=== PATIENT | male | born 1930 | race Caucasian/White ===

== ENCOUNTER 2017-01-16 18:48 | Inpatient (IN) ==
--- NOTE | 2017-01-16 21:14 | Internal Med History&Physical ---
Date of Encounter: 01/16/17 Time of Encounter: 21:14 Assessment and Plan (1) Pericardial effusion Current visit: Yes Status: Acute Patient transferred to our unit due to pericardial effusion. Etiology under evaluation. No signs of pericardial tamponade, no hypotension, no tachycardia. We will obtain an echocardiogram for further clarification of the amount of the effusion. Obtain CRP, ESR, rheumatoid factor, repeat thyroid function tests, hepatitis panel, viral infection panel, HIV. We will obtain a tent of cardiac biomarkers. monitoring and evaluation advisor. Monitor input and output. Cardiology evaluation. (2) DVT prophylaxis Current visit: No Status: Acute DVT prophylaxis with heparin. (3) Chronic kidney disease Current visit: Yes Status: Acute Avoid nephrotoxic agents. Monitor kidney function tests. Qualifiers: Chronic kidney disease stage: stage 3 (moderate) Qualified Code(s): N18.3 - Chronic kidney disease, stage 3 (moderate) (4) Hyperlipidemia Current visit: No Status: Chronic Qualifiers: Hyperlipidemia type: mixed hyperlipidemia Qualified Code(s): E78.2 - Mixed hyperlipidemia (5) Hypertension Current visit: No Status: Chronic Patient complaining of cough which is persistent for almost a month, we will hold NURYS inhibitor. Qualifiers: Hypertension type: essential hypertension Qualified Code(s): I10 - Essential (primary) hypertension Internal Medicine - H&P: HPI Chief complaint: Cough Admitted From: Hospital to Hospital Transfer ([facility]) Plans for Post Hospital Care: Home History of present illness: Mr. Small is a 86 year old male with medical history of hypertension, coronary artery disease status post stents a few years ago, from her smoker. He presented to [facility] as a direct transfer from [facility]. The patient states that since the last 4 weeks. In complaining of persistent productive cough, clear phlegm, associated with shortness of breath and mild chest pain which is exacerbated by cough. He has been given multiple courses of antibiotics and steroids without improvement. Upon evaluation at [facility] he was found to have a moderate pericardial effusion. He was not hypotensive or tachycardic. Emergency department staff at [facility] discussed the case with our green end man who accepted to evaluate the patient tomorrow with an echo and thallium for further clarification of the severity of the pericardial effusion. In my encounter with the patient he was not in respiratory distress, however he was complaining of persistent cough. He denies fever, chills, syncope, skin rash, neck swelling, diarrhea, seizure-like activity. Initial blood work at [facility] was essentially unremarkable, however there is some elevation in the creatinine was 1.98, patient's baseline is in the 1:30 to 140s. BUN was 28. Troponin was 0.01, brain natruretic peptide was less than 10. A TSH was obtained 2 months ago and was 0.0 72. Past Med Surg Social Fam HX - Past Medical History Medical history: arthritis, GERD, glaucoma, hyperlipidemia, hypertension, myocardial infarction, other Psychiatric history: anxiety - Past Surgical History Surgical History: appendectomy, knee replacement - Social History Smoking Status: Former smoker Smokeless Tobacco Status: Yes Alcohol use: none Drug use: none - Family History Father Adopted: No Living Status: Hx Family Cardiac Disorders: Yes Mother Adopted: No Family Member Ethnicity: Non- Living Status: Internal Medicine - H&P: Meds Carbidopa/Levodopa ER 50/200 [Sinemet ER 50-200 Tab] 1 each PO TID 06/12/15 [ History] Omeprazole [PriLOSEC] 20 mg PO DAILY 06/12/15 [History] Primidone [Mysoline] 50 mg PO DAILY 06/12/15 [History] Captopril 50 mg PO TID 11/22/15 [History] Hydrochlorothiazide 25 mg PO DAILY 11/22/15 [History] Latanoprost [Xalatan] 1 drop RIGHT EYE HS 04/27/16 [History] Polyvinyl Alcohol [Artificial Tears] 1 drop OP PRN PRN 04/27/16 [History] Atorvastatin [Lipitor] 40 mg PO HS 30 Days 07/22/16 [Rx] Clopidogrel [Plavix] 75 mg PO DAILY 30 Days 07/22/16 [Rx] Metoprolol [Lopressor] 12.5 mg PO BID 30 Days 07/22/16 [Rx] Nitroglycerin 0.4 mg SL Q5MIN PRN #3 tab.subl 07/22/16 [Rx] Allergies naproxen Allergy (Verified 07/19/16 14:02) Itching All Systems PM: A 10-system review of systems was performed and is negative for pertinent findings except as documented above in the HPI. - Constitutional Constitutional: as per HPI, no chills, no fever(s), no night sweats - EENT Eyes: as per HPI, no change in vision, no discharge, no pain, no photophobia Ears: as per HPI, no ear discharge, no ear pain, no tinnitus Nose, mouth and throat: as per HPI, no dysphagia, no nasal discharge, no neck pain, no sore throat - Breasts Breasts: as per HPI - Cardiovascular Cardiovascular ROS IM: as per HPI, chest pain, no diaphoresis, no dyspnea, no lightheadedness, no palpitations, no syncope - Respiratory Respiratory: as per HPI, cough, dyspnea, dyspnea on exertion, no wheezing, no excessive phlegm production - Gastrointestinal Gastrointestinal: as per HPI, no abdominal pain, no diarrhea, no hematemesis, no hematochezia, no melena, no nausea, no vomiting - Genitourinary Genitourinary ROS male: as per HPI - Musculoskeletal Musculoskeletal ROS IM: as per HPI, no numbness, no tingling - Integumentary Integumentary IM: as per HPI, no rash, no unusual bruising - Neurological Neurological ROS: as per HPI, no confusion, no convulsions, no focal weakness, no numbness, no tingling, no tremor(s) - Psychiatric Psychiatric: as per HPI - Endocrine Endocrine IM: as per HPI - Hematologic/Lymphatic Hematologic/Lymphatic: as per HPI, no easy bruising - Allergic/Immunologic Allergic/Immunologic: as per HPI - Constitutional Vitals: Temp Pulse Resp BP Pulse Ox 98.7 F 55 14 158/85 97 01/16/17 20:33 01/16/17 20:33 01/16/17 20:33 01/16/17 20:33 01/16/17 20:33 General appearance: Present: cooperative, A&O X 3, pleasant, no acute distress - Head Head exam: Present: atraumatic, normocephalic - Eye Eye exam: Present: PERRL, conjuntiva pink, sclera anicteric Pupils: Present: PERRL - Neck Neck exam general surgery: Present: supple, trachea midline. Absent: lymphadenopathy - Respiratory Respiratory exam: Present: CTAB. Absent: accessory muscle use, rales, rhonchi, wheezes - Cardiovascular Cardiovascular exam: Present: RRR, +S1, +S2. Absent: diastolic murmur, gallop, rubs, systolic murmur - GI/Abdominal GI/Abdominal exam: Present: normal bowel sounds, soft, no peritoneal signs. Absent: distended, tenderness - Extremities Exam Extremities exam: Present: warm, radial pulses palpable and symetrical. Absent : calf tenderness, cyanotic, pedal edema - Neurological Exam Neurological exam: Present: CN II-XII intact, oriented X3, no focal deficits. Absent: pronater drift, facial droop, speech deficit - Skin Skin exam: Present: dry, intact
[2017-01-16] MEDS ORDERED: Acetaminophen 325 MG TABLET PO PRN (21:33)
[2017-01-16] MEDS ORDERED: Naloxone 0.4 MG/ML INJ IVP PRN (21:33)
[2017-01-16] MEDS ORDERED: *HR* OxyCODONE Immed Rel 5 MG TABLET PO PRN (21:33)
[2017-01-16] MEDS ORDERED: Ondansetron 4 MG/2 ML VIAL IVP PRN (21:33)
[2017-01-16] MEDS ORDERED: 0.9 % Sodium Chloride 1,000 ML IVC SCH (21:45)
[2017-01-16] MEDS ORDERED: Nitroglycerin 0.4 MG TAB.SUBL SL PRN (22:00)
[2017-01-17 03:40] LABS: Basophils % 0.3 %; Eosinophils # 0.2 K/mcL (0.0-0.6); Eosinophils % 2.4 %; Hematocrit 35.5 % (37.5-50.1); Hemoglobin 11.7 g/dL (12.9-16.9); Immature Granulocytes % 0.7 % (0-4); Lymphocytes # 1.7 K/mcL (0.6-4.6); Lymphocytes % 17.9 %; Mean Corpuscular Hemoglobin 27.3 pg (28.0-33.3); Mean Corpuscular Volume 82.9 fL (83.0-100.0); Mean Platelet Volume 10.5 fL (9.4-12.4); Monocytes # 0.7 K/mcL (0.0-1.3); Monocytes % 7.7 %; Neutrophils # 6.8 K/mcL (1.6-8.9); Platelet Count 222 K/mcL (140-400); Red Blood Count 4.28 M/mcL (4.19-5.50)
[2017-01-17 03:47] LABS: INR 1.1; Prothrombin Time 12.4 Seconds (9.4-12.1)
[2017-01-17 03:52] LABS: Alanine Aminotransferase 69 Units/L (0-55); Albumin 3.8 g/dL (3.5-5.0); Albumin/Globulin Ratio 1.3 (1.1-2.2); Alkaline Phosphatase 69 Units/L (38-126); Aspartate Amino Transferase 64 Units/L (5-34); BUN/Creatinine Ratio 14 (6-26); Bilirubin,Total 0.3 mg/dL (0.2-1.2); Blood Urea Nitrogen 27 mg/dL (8-26); C-Reactive Protein 1 mg/L (Less than 5); Carbon Dioxide 24 mEq/L (19-29); Chloride 102 mEq/L (98-109); Chol/HDL Ratio 3.4 (0-4.9); Cholesterol 112 mg/dL (< 200); Glucose 115 mg/dL (70-99); HDL Cholesterol 33 mg/dL (40-59); LDL Cholesterol,Calculated 48 mg/dL (0-99); Magnesium 2.1 mg/dL (1.6-2.6); Osmolality,Calculated 288 (280-300); Phosphorous 3.5 mg/dL (2.3-4.7); Potassium 4.1 mEq/L (3.5-4.5); Sodium 136 mEq/L (136-145); Total Protein 6.8 g/dL (6.0-8.3); Triglycerides 153 mg/dL (< 150); eGFR For African Americans 40 (> 60); eGFR For Non-African Americans 33 (> 60)
[2017-01-17 04:33] LABS: Thyroid Stimulating Hormone 17.738 mcIU/mL (0.350-4.840)
[2017-01-17] MEDS ORDERED: Famotidine 20 MG/2 ML VIAL IVP SCH (06:00)
[2017-01-17] MEDS: *HR* Heparin 5,000 UNIT/ML VIAL SQ SCH ×2 (06:36→18:35)
[2017-01-17] MEDS: Carbidopa/Levodopa ER 50/200 TABLET PO SCH ×3 (08:30→20:00)
--- NOTE | 2017-01-17 09:25 | Internal Med Progress Note ---
Date of Encounter: 01/17/17 Time of Encounter: 09:25 - Assessment and plan (1) Pericardial effusion Current Visit: Yes Status: Acute Assessment and plan: -Patient transferred from [facility] for management of pericardial effusion CT chest: Moderate pericardial effusion Follow up 2D echo ESR elevated with normal CRP f/u RF, hepatitis panel, HIV Serial TNI negative No signs of pericardial tamponade, no hypotension, no tachycardia Continue tele monitoring f/u cardiology consultation monitor O2 saturation O2 supplementation as needed (2) Wgher-uy-ggpqurt kidney injury Current Visit: Yes Status: Acute Assessment and plan: Holding NURYS-inh and HCTZ at this time continue to avoid nephrotoxic agents at this time continue to monitor renal function (3) Hypothyroidism Current Visit: No Status: Acute Assessment and plan: Thyroid studies consistent with primary hypothyroidism Will start Levothyroxine repeat thyroid studies in a few weeks after discharge Qualifiers: Hypothyroidism type: unspecified Qualified Code(s): E03.9 - Hypothyroidism , unspecified (4) Hyperlipidemia Current Visit: No Status: Chronic Assessment and plan: continue home medications Qualifiers: Hyperlipidemia type: mixed hyperlipidemia Qualified Code(s): E78.2 - Mixed hyperlipidemia (5) Hypertension Current Visit: No Status: Chronic Assessment and plan: BP within acceptable range holding HCTZ and NURYS-inh due to KESHAWN continue metoprolol closely monitor BP, will adjust therapy as needed Qualifiers: Hypertension type: essential hypertension Qualified Code(s): I10 - Essential (primary) hypertension (6) DVT prophylaxis Current Visit: No Status: Acute Assessment and plan: Heparin SQ - Subjective Interval history: Patient seen and examined at bedside. Resting comfortably in bed and reports of feeling better compared to the yesterday. Currently saturating well on room air and denies any cough, chest pain, sob at this time. - Constitutional Vitals: Temp Pulse Resp BP Pulse Ox 98.2 F 56 14 131/74 97 01/17/17 07:18 01/17/17 08:45 01/17/17 07:18 01/17/17 07:18 01/17/17 07:18 General appearance: Present: cooperative, A&O X 3, pleasant, no acute distress, answers questions appropriately - Head Head exam: Present: atraumatic, normocephalic - Eye Eye exam: Present: normal appearance, conjuntiva pink, sclera anicteric - Respiratory Respiratory exam: Absent: respiratory distress, wheezes - Cardiovascular Cardiovascular exam: Present: bradycardia, RRR, +S1, +S2 - GI/Abdominal GI/Abdominal exam: Present: normal bowel sounds, soft, no peritoneal signs. Absent: distended, tenderness - Extremities Exam Extremities exam: Present: warm, radial pulses palpable and symetrical. Absent : calf tenderness, cyanotic, pedal edema - Neurological Exam Neurological exam: Present: alert, oriented X3 - Psychiatric Psychiatric exam: Present: normal affect, normal mood Internal Medicine: Result - Labs CBC & Chem 7: 01/17/17 03:24 01/17/17 03:24 Labs: Short CBC 01/17/17 Range/Units 03:24 WBC 9.6 (4.3-11.1) K/mcL Hgb 11.7 L D (12.9-16.9) g/dL Hct 35.5 L (37.5-50.1) % Plt Count 222 (140-400) K/mcL Neutrophils # 6.8 (1.6-8.9) K/mcL BMP 01/17/17 03:24 Sodium 136 Potassium 4.1 Chloride 102 Carbon Dioxide 24 BUN 27 H Creatinine 1.93 H Glucose 115 H Calcium 9.0 Cardiac Enzymes 01/16/17 01/17/17 Range/Units 21:52 03:24 Troponin I 0.01 0.01 (0-0.03) ng/mL Liver Function 01/17/17 Range/Units 03:24 Total Bilirubin 0.3 (0.2-1.2) mg/dL AST 64 H (5-34) Units/L ALT 69 H (0-55) Units/L Alkaline Phosphatase 69 (38-126) Units/L Albumin 3.8 (3.5-5.0) g/dL - ABG Interpretation ABG results: PT/INR, D-dimer PT 12.4 Seconds (9.4-12.1) H 01/17/17 03:24 Consult Discharge Plan - Plan Referrals: Jamie Najera Jr, MD [Primary Care Provider] -
--- NOTE | 2017-01-17 09:52 | Cardiology Consult Note ---
Date of Encounter: 01/17/17 Time of Encounter: 08:30 Assessment and Plan (1) Pericardial effusion Current Visit: No Status: Acute Per cardiology: -Patient with shortness of breath for 4 weeks in the setting of cough and congestion. -CT chest with moderate pericardial effusion. -Patient on room air, SpO2 98%. No conversational dyspnea noted. -Euvolemic on exam. -Echo pending. -Further recommendations pending echo. (REECE) (2) Vpthk-rh-vfrubtl kidney injury Current Visit: Yes Status: Acute Per cardiology: -Creatinine 1.93 on admission. -Creat Nov, 11.17. -Management per primary service. (REECE) (3) Hypothyroidism Current Visit: No Status: Acute Per cardiology: -TSH 17.738. -No history of hypothyroidism per patient. Suspect contributing cause to his pericardial effusion. -Management per primary service. (REECE) Qualifiers: Hypothyroidism type: unspecified Qualified Code(s): E03.9 - Hypothyroidism , unspecified (4) CAD (coronary artery disease) Current Visit: Yes Status: Chronic Per cardiology: -KNown history of CAD. -[facility] July 2016 with LM 30% stenosis, LAD 50% proximal, 30% mid LAD, Circumflex 99% with GRACIELA, 30% proximal RCA, 60% distal RCA, 70% ostial portion of PDA> -On plavix, statin, and beta ely. -Denies chest pain, -Troponins negative x2. -Echo pending. - -Will order ECG for evaluation. -Will add asa. -Recommend dual anti-platelet therapy for one year. Qualifiers: Coronary Disease-Associated Artery/Lesion type: [place] artery [place] vs. transplanted heart: [place] heart Associated angina: without angina Qualified Code(s): I25.10 - Atherosclerotic heart disease of [place] coronary artery without angina pectoris (5) Elevated LFTs Current Visit: Yes Status: Acute Per cardiology: -AST 64, had prevously been normal. -ALT 69, had previously been normal. -On statin therapy. -Will decrease statin. Monitor closely. (REECE) Discussion w patient/family: The assessment and plan as outlined above was discussed with the patient who expressed understanding and agreement. All questions were answered. Thank you for involving us in the care of your patient. Please call with any questions. Patient seen and examined with RIA Lim DIscussed and reviewed with . History of Present Illness Consult date: 01/17/17 Requesting physician: Estella Hutchinson Consult reason: moderate pericardial effusion Chief complaint: shortnes of breath History of present illness: Mr. Small is a 86 year old male with a relevant past medical history of GERD, arthritis, hyperlipidemia, HTN, parkinsons, [place], CAD status post LHC and GRACIELA 1015, anxiety, former smoker. Patient presents to the ER for worsening shortness of breath. Patient states he has been sick for the past 4 weeks with productive cough, congestion, and weakness. Patient states he has seen his PCP several times for this and they have prescribed ATB and steroids with little improvement. CT chest was performed for patient's shortness of breath and pericardial effusion was noted. Cardiology was consulted. Patient denies chest pain. (REECE) Past Med Surg Social Fam HX - Past Medical History Attestation: Yes The following information was validated with the patient. Source: patient, old records reviewed Medical history: arthritis, GERD, glaucoma, hyperlipidemia, hypertension, myocardial infarction, other Psychiatric history: anxiety - Past Surgical History Surgical History: appendectomy, knee replacement - Social History Smoking Status: Former smoker Smokeless Tobacco Status: Yes Alcohol use: none Drug use: none - Family History Father Adopted: No Living Status: Hx Family Cardiac Disorders: Yes Mother Adopted: No Family Member Ethnicity: Non- Living Status: Medications and Allergies Carbidopa/Levodopa ER 50/200 [Sinemet ER 50-200 Tab] 1 each PO BID 06/12/15 [ History] Omeprazole [PriLOSEC] 20 mg PO DAILY 06/12/15 [History] Primidone [Mysoline] 50 mg PO DAILY 06/12/15 [History] Captopril 50 mg PO TID 11/22/15 [History] Hydrochlorothiazide 25 mg PO DAILY 11/22/15 [History] Latanoprost [Xalatan] 1 drop RIGHT EYE HS 04/27/16 [History] Polyvinyl Alcohol [Artificial Tears] 1 drop OP PRN PRN 04/27/16 [History] Clopidogrel [Plavix] 75 mg PO DAILY 30 Days 07/22/16 [Rx] Metoprolol [Lopressor] 12.5 mg PO BID 30 Days 07/22/16 [Rx] Nitroglycerin 0.4 mg SL Q5MIN PRN #3 tab.subl 07/22/16 [Rx] Atorvastatin [Lipitor] 40 mg PO DAILY 01/16/17 [History] Allergies naproxen Allergy (Verified 07/19/16 14:02) Itching All Systems Review: A 10-system review of systems was performed and is negative for pertinent findings except as documented above in the HPI. - Constitutional Constitutional: fatigue, weakness - Cardiovascular Cardiovascular: as per HPI, dyspnea on exertion - Respiratory Respiratory: cough, dyspnea Physical Examination Vital Signs, Last 4 Hours Temp Pulse Resp BP Pulse Ox 01/17/17 08:45 56 01/17/17 07:18 98.2 F 56 14 131/74 97 General: Conversant, No Apparent Distress HEENT: Atraumatic, Normocephaly, Mucus Membranes Moist Neck: No JVD, Normal carotid pulses Cardiac: Reg Rate and Rhythm, Normal S1 and S2, No Murmur, Other (No pericardial rub noted. ) Lungs: Normal Breath Sounds, No Wheeze, Rales, Rhonchi Neuro: Alert and responsive, No focal deficits noted Abdomen: Soft, Non-Tender Skin: No rashes noted on visualized skin Musculoskeletal: No Chest Wall Tenderness Extremities: No Clubbing, No Cyanosis, No Edema, Normal Pulses Results 01/17/17 03:24 01/17/17 03:24 Lab Results Active Medications Acetaminophen (Tylenol) 650 mg PO Q6HR PRN PRN Reason: Mild Pain (1-3) Stop: 07/18/17 21:34 Carbidopa/Levodopa (Sinemet Er 50-200 Tab) 1 each PO TID [facility] Stop: 07/19/17 09:01 Last Admin: 01/17/17 08:30 Dose: 1 each Clopidogrel Bisulfate (Plavix) 75 mg PO DAILY [facility] Stop: 07/19/17 09:01 Last Admin: 01/17/17 08:30 Dose: 75 mg Docusate Sodium (Colace) 100 mg PO BID PRN PRN Reason: Constipation Stop: 07/18/17 21:34 Last Admin: 01/17/17 08:29 Dose: 100 mg Famotidine (Pepcid) 20 mg IVP Q12HR JENNA Stop: 07/19/17 06:01 Last Admin: 01/17/17 06:37 Dose: 20 mg Heparin Sodium (Porcine) (Heparin) 5,000 unit SQ Q12HCO [facility] Stop: 07/19/17 06:01 Last Admin: 01/17/17 06:36 Dose: 5,000 unit Levothyroxine Sodium (Synthroid) 50 mcg PO 0630 [facility] Stop: 07/20/17 09:40 Metoprolol Tartrate (Lopressor) 12.5 mg PO BID [facility] Stop: 07/19/17 09:01 Last Admin: 01/17/17 08:30 Dose: 12.5 mg Naloxone HCl (Narcan) 0.4 mg IVP Q2MIN PRN PRN Reason: Opioid Reversal Stop: 07/18/17 21:34 Nitroglycerin (Nitroglycerin) 0.4 mg SL Q5MIN PRN PRN Reason: Chest Pain Stop: 07/18/17 22:01 Ondansetron HCl (Zofran) 4 mg IVP Q8HR PRN PRN Reason: Nausea And Vomiting Stop: 07/18/17 21:34 Oxycodone HCl (Roxicodone) 5 mg PO Q6HR PRN PRN Reason: Moderate Pain (4-6) Stop: 07/18/17 21:34 Simvastatin (Zocor) 40 mg PO DAILY [facility] Stop: 07/19/17 09:01 Last Admin: 01/17/17 08:30 Dose: 40 mg Laboratory Tests 08/27/16 11/24/16 01/16/17 05:30 15:02 16:18 Hgb Hct Creatinine 1.31 H 1.45 H 1.98 H AST ALT Troponin I Triglycerides Cholesterol LDL Cholesterol, Calc VLDL Cholesterol, Calc HDL Cholesterol [facility] 01/16/17 01/17/17 01/17/17 21:52 03:24 03:24 Hgb 11.7 L D Hct 35.5 L Creatinine AST ALT Troponin I 0.01 0.01 Triglycerides Cholesterol LDL Cholesterol, Calc VLDL Cholesterol, Calc HDL Cholesterol TSH 01/17/17 03:24 Hgb Hct Creatinine 1.93 H AST 64 H ALT 69 H Troponin I Triglycerides 153 H Cholesterol 112 LDL Cholesterol, Calc 48 VLDL Cholesterol, Calc 31 H HDL Cholesterol 33 L TSH 17.738 H - Imaging and Cardiology Echo: pending Other Results: CT chest report reviewed - EKG Interpretation EKG results cardiology: other (Telemetry reviewed with robel HR 55, sinus bradycardia. No significant events noted.) Consult Discharge Plan - Plan Referrals: Jamie Najera Jr, MD [Primary Care Provider] -
--- NOTE | 2017-01-17 13:16 | ECHO - Doppler Report ---
Echocardiogram Name: Jonah Small Date of Study: 01/17/2017 Date: 1930 Ht: 67.0 in Medical Record#: [id number] Age: 86 Wt: 173.0 lb Gender: Male BSA: 1.9 Order #: [id number] Location: [facility] Room #: 2N05 Reading Physician: Gosia Miller DO Shift Supervisor Melting: Matilda Renner Ordering Physician: Serafin Murguia MD Primary Physician: Jamie Najera MD Indications: Pericardial Effusion Impressions: LVEF 55%. Normal appearing LV size and wall thickness. RV is normal in size and function. Mild mitral regurgitation. Based on images provided, there is trivial to small pericardial fluid present. RV size and function are normal. There is no collapse of the right sided chambers. IVC is not visualized. Blood pressure is normal. Overall, there does not appear to be a significant amount of pericardial fluid and no findings suggesting tamponade. Left Ventricular Wall Motion: Rest Echo Findings All wall segments showed normal motion. Findings: Study Quality * Technically sub-optimal due to poor echocardiographic windows. Poor PLAX and subcostal images. ECG Findings * Sinus bradycardia. Aortic Valve * No aortic regurgitation. * Trileaflet aortic valve. * Normal aortic valve structure. * No aortic stenosis. Mitral Valve * Normal mitral valve structure. * No mitral stenosis. * Mild mitral annular calcification * Mild mitral regurgitation. Tricuspid Valve * Tricuspid valve not well visualized. * No tricuspid regurgitation. Pulmonic Valve * Pulmonic valve is not well visualized. * No pulmonic stenosis. * No pulmonic regurgitation. Pulmonary Artery * Pulmonary artery not well visualized. Left Ventricle * LVEF 55%. * Mild left ventricular diastolic dysfunction. * Poor PLAX images to measure LV thickness and size. Right Ventricle * Normal right ventricular structure and function. Right Atrium * Normal right atrial size. Left Atrium * Normal left atrial size. Interatrial Septum * No evidence of PFO by color Doppler. IVC * The IVC is not well evaluated. Aorta * Suboptimally evaluated. Pericardium * There is a trivial to small pericardial effusion present. History Hypertension Hypercholesteremia Family History of CAD History of CAD/PTCA Myocardial Infarction 07/21/2016 a Previous Echo was performed. Measurements: BP: 153/ 69 2D Normal Values IVSd: 1.00 cm 0.6 - 1.0 cm LVIDd: 5.10 cm 3.7 - 5.6 cm LVPWd: .90 cm 0.6 - 1.1 cm LVIDs: 3.80 cm 1.5 - 3.6 cm AO: 2.40 cm < 4.0 cm LA: 3.70 cm 2.0 - 4.0cm %FS: 25.50 cm >25 % LA volume: 44 Mitral Valve Peak E:.59 m/sec Peak A:.70 m/sec E/A Ratio:0.9 Peak E' Lat Pro:5.65 cm/s Peak E' Med Pro:4.29 cm/s E/E' Lat Ratio:10.5 E/E' Med Ratio:13.8 Tricuspid Valve TV Regurg Peak Grad: 6.00mmHg TV Regurg Peak Pro: 1.25m/sec Updated by Gosia Miller on 01/17/2017 1:06:17 PM electronically signed on 01/17/2017 1:11:16 PM with status of Final Wall Motion Restrepo: 1=Normal, 2=Hypokinesis, 3=Akinesis, 4=Dyskinesis, 5=Aneurysmal, 6=Hyperkinetic, X=Not Visualized (Blank)=Missing
[2017-01-17] MEDS: Aspirin 81 MG TAB.CHEW PO SCH (15:10)
[2017-01-18 03:38] LABS: Basophils % 0.3 %; Eosinophils # 0.3 K/mcL (0.0-0.6); Eosinophils % 2.9 %; Hematocrit 37.3 % (37.5-50.1); Hemoglobin 11.9 g/dL (12.9-16.9); Immature Granulocytes % 0.5 % (0-4); Lymphocytes # 1.7 K/mcL (0.6-4.6); Mean Corpuscular HGB Conc 31.9 g/dL (31.6-35.5); Mean Corpuscular Hemoglobin 26.9 pg (28.0-33.3); Mean Corpuscular Volume 84.4 fL (83.0-100.0); Mean Platelet Volume 10.4 fL (9.4-12.4); Monocytes # 0.8 K/mcL (0.0-1.3); Neutrophils # 5.8 K/mcL (1.6-8.9); Platelet Count 211 K/mcL (140-400); Red Blood Count 4.42 M/mcL (4.19-5.50); Segmented Neutrophils % 67.3 %
[2017-01-18 03:55] LABS: Calcium 9.2 mg/dL (8.6-10.8); Magnesium 2.2 mg/dL (1.6-2.6); Phosphorous 3.6 mg/dL (2.3-4.7); Potassium 4.2 mEq/L (3.5-4.5)
[2017-01-18] MEDS: *HR* Heparin 5,000 UNIT/ML VIAL SQ SCH ×2 (05:58→17:39)
[2017-01-18] MEDS: Famotidine 20 MG/2 ML VIAL IVP SCH (05:58)
[2017-01-18] MEDS: Aspirin 81 MG TAB.CHEW PO SCH (09:17)
[2017-01-18] MEDS: Carbidopa/Levodopa ER 50/200 TABLET PO SCH ×2 (09:17→20:55)
[2017-01-18 11:16] LABS: Rheumatoid Factor < 15 IU/mL (0-29)
--- NOTE | 2017-01-18 11:41 | Electrocardiograph Report ---
[address] [address] Test Date: 2017-01-17 Pat Name: Jonah Small Department: 110 Room: [facility] Gender: M Data Operations Manager: MACARIO : 1930 Requested By: Riley Turner Order Number: [id number] Reading MD: Gosia Miller Measurements Intervals [place] Rate: 50 P: 59 MN: 189 QRS: 51 QRSD: 110 T: 59 QT: 419 QTc: 392 Interpretive Statements SINUS BRADYCARDIA Electronically Signed On 01-18-2017 11:40:35 EDT by Gosia Miller
[2017-01-18 12:11] LABS: HIV-1&2 Antibody & p24 Ag Nonreactive (Nonreactive); Hepatitis A Antibody IgM Nonreactive (Nonreactive); Hepatitis B Core IgM Nonreactive (Nonreactive); Hepatitis B Surface Antigen Nonreactive (Nonreactive); Hepatitis C Virus Antibody Nonreactive (Nonreactive)
--- NOTE | 2017-01-18 13:06 | Internal Med Progress Note ---
Date of Encounter: 01/18/17 Time of Encounter: 12:05 - Assessment and plan (1) Pericardial effusion Current Visit: Yes Status: Acute Assessment and plan: -Patient transferred from [facility] for management of pericardial effusion CT chest: Moderate pericardial effusion 2D echo noted ESR elevated with normal CRP Serial TNI negative No signs of pericardial tamponade, no hypotension, no tachycardia Continue tele monitoring cardiology consultation noted, no acute intervention recommended at this time. monitor O2 saturation O2 supplementation as needed (2) Fxeik-lj-iibskxv kidney injury Current Visit: Yes Status: Acute Assessment and plan: Holding NURYS-inh and HCTZ at this time continue to avoid nephrotoxic agents at this time continue to monitor renal function Renal function improving but not at baseline will continue to monitor Awaiting PT eval, likely d/c in am (3) Hypothyroidism Current Visit: No Status: Acute Assessment and plan: Thyroid studies consistent with primary hypothyroidism continue Levothyroxine repeat thyroid studies in a few weeks after discharge Qualifiers: Hypothyroidism type: unspecified Qualified Code(s): E03.9 - Hypothyroidism , unspecified (4) Hyperlipidemia Current Visit: No Status: Chronic Assessment and plan: continue home medications Qualifiers: Hyperlipidemia type: mixed hyperlipidemia Qualified Code(s): E78.2 - Mixed hyperlipidemia (5) Hypertension Current Visit: No Status: Chronic Assessment and plan: BP within acceptable range holding HCTZ and NURYS-inh due to KESHAWN Noted to have asymptomatic bradycardia with normotensive BP, holding Metoprolol at this time closely monitor BP, will adjust therapy as needed Qualifiers: Hypertension type: essential hypertension Qualified Code(s): I10 - Essential (primary) hypertension (6) DVT prophylaxis Current Visit: No Status: Acute Assessment and plan: Heparin SQ - Subjective Interval history: Patient seen and examined at bedside.Sitting in bed and reports of feeling comfortable at this time. Noted to be using bedside commode and will benefit from PT. Denies any chest pain or resp distress. Noted to have asymptomatic bradycardia with normotensive BP. Holding morning Metoprolol dose. Renal function improving but not at baseline. - Constitutional Vitals: Temp Pulse Resp BP Pulse Ox 98.2 F 52 15 142/82 98 01/18/17 07:00 01/18/17 09:23 01/18/17 07:00 01/18/17 07:00 01/18/17 09:23 General appearance: Present: cooperative, A&O X 3, pleasant, no acute distress, answers questions appropriately - Head Head exam: Present: atraumatic, normocephalic - Eye Eye exam: Present: PERRL, conjuntiva pink, sclera anicteric - Respiratory Respiratory exam: Present: CTAB. Absent: accessory muscle use, rales, rhonchi, wheezes - Cardiovascular Cardiovascular exam: Present: bradycardia, +S1, +S2. Absent: diastolic murmur, gallop, rubs, systolic murmur - GI/Abdominal GI/Abdominal exam: Present: normal bowel sounds, soft, no peritoneal signs. Absent: distended, tenderness - Extremities Exam Extremities exam: Present: warm, radial pulses palpable and symetrical. Absent : calf tenderness, cyanotic, pedal edema - Neurological Exam Neurological exam: Present: alert, oriented X3 - Psychiatric Psychiatric exam: Present: normal affect, normal mood Internal Medicine: Result - Labs CBC & Chem 7: 01/18/17 03:08 01/18/17 03:08 Labs: Short CBC 01/18/17 Range/Units 03:08 WBC 8.6 (4.3-11.1) K/mcL Hgb 11.9 L (12.9-16.9) g/dL Hct 37.3 L (37.5-50.1) % Plt Count 211 (140-400) K/mcL Neutrophils # 5.8 (1.6-8.9) K/mcL BMP 01/18/17 03:08 Sodium 134 L Potassium 4.2 Chloride 99 Carbon Dioxide 23 BUN 27 H Creatinine 1.72 H Glucose 113 H Calcium 9.2 - ABG Interpretation ABG results: PT/INR, D-dimer PT 12.4 Seconds (9.4-12.1) H 01/17/17 03:24 Consult Discharge Plan - Plan Referrals: Sheri Milligan CNP [Partnered Physician] - 01/21/17 10:30 am Jamie Najera Jr, MD [Primary Care Provider] - Jamel Fernandes MD [Partnered Physician] - 01/26/17 1:00 pm
[2017-01-19] MEDS: Famotidine 20 MG/2 ML VIAL IVP SCH (06:22)
[2017-01-19] MEDS: *HR* Heparin 5,000 UNIT/ML VIAL SQ SCH (06:22)
[2017-01-19] MEDS: Carbidopa/Levodopa ER 50/200 TABLET PO SCH (07:52)
[2017-01-19] MEDS: Aspirin 81 MG TAB.CHEW PO SCH (07:52)
[2017-01-19 08:55] LABS: Basophils % 0.5 %; Eosinophils # 0.2 K/mcL (0.0-0.6); Eosinophils % 3.7 %; Hematocrit 39.1 % (37.5-50.1); Hemoglobin 12.6 g/dL (12.9-16.9); Immature Granulocytes % 0.3 % (0-4); Lymphocytes # 1.9 K/mcL (0.6-4.6); Lymphocytes % 31.5 %; Mean Corpuscular HGB Conc 32.2 g/dL (31.6-35.5); Mean Corpuscular Volume 83.7 fL (83.0-100.0); Mean Platelet Volume 10.4 fL (9.4-12.4); Monocytes # 0.5 K/mcL (0.0-1.3); Monocytes % 8.4 %; Neutrophils # 3.4 K/mcL (1.6-8.9); Platelet Count 205 K/mcL (140-400); Red Blood Count 4.67 M/mcL (4.19-5.50); Red Cell Distribution Width 15.3 % (11.5-14.5); Segmented Neutrophils % 55.6 %
[2017-01-19 09:08] LABS: Calcium 9.3 mg/dL (8.6-10.8); Magnesium 2.1 mg/dL (1.6-2.6); Phosphorous 3.3 mg/dL (2.3-4.7); Potassium 4.5 mEq/L (3.5-4.5)
[2017-01-19 11:29] VITALS: BP 132/73
--- NOTE | 2017-01-19 13:00 | Discharge Summary ---
Date of Encounter: 01/19/17 Time of Encounter: 11:00 - Discharge Diagnosis (1) Pericardial effusion Priority: Primary Status: Acute (2) Onctq-fd-nsqufip kidney injury Priority: Secondary Status: Acute (3) Hypothyroidism Priority: Secondary Status: Chronic Qualifiers: Hypothyroidism type: unspecified Qualified Code(s): E03.9 - Hypothyroidism , unspecified (4) Hyperlipidemia Priority: Secondary Status: Chronic Qualifiers: Hyperlipidemia type: mixed hyperlipidemia Qualified Code(s): E78.2 - Mixed hyperlipidemia (5) Hypertension Priority: Secondary Status: Chronic Qualifiers: Hypertension type: essential hypertension Qualified Code(s): I10 - Essential (primary) hypertension (6) DVT prophylaxis Priority: Secondary Status: Acute - Discharge Medications Prescriptions: Levothyroxine Sodium [Synthroid] 137 mcg PO DAILY #30 tablet Home Medications: Carbidopa/Levodopa ER 50/200 [Sinemet ER 50-200 Tab] 1 tab PO BID 06/12/15 [ History] Omeprazole [PriLOSEC] 20 mg PO DAILY 06/12/15 [History] Primidone [Mysoline] 50 mg PO DAILY 06/12/15 [History] Latanoprost [Xalatan] 1 drop RIGHT EYE HS 04/27/16 [History] Polyvinyl Alcohol [Artificial Tears] 1 drop OP PRN PRN 04/27/16 [History] Clopidogrel [Plavix] 75 mg PO DAILY 30 Days 07/22/16 [Rx] Nitroglycerin 0.4 mg SL Q5MIN PRN #3 tab.subl 07/22/16 [Rx] Atorvastatin [Lipitor] 40 mg PO DAILY 01/16/17 [History] TraZODone 50 mg PO HS PRN 01/17/17 [History] Levothyroxine Sodium [Synthroid] 137 mcg PO DAILY #30 tablet 01/19/17 [Rx] Allergies/Adverse Reactions: Allergies naproxen Allergy (Verified 07/19/16 14:02) Itching Procedures/tests Complete & Pending: Procedures Performed prior 72 hours Category Date Time Status EKG [ECG 12 lead ECG] [ECG] Stat Y 01/17/17 12:50 Completed EV echocardiogram Routine Y 01/17/17 22:05 Completed Date of admission: 01/16/17 21:22 Primary care physician: Jamie Najera Jr, MD Consults: 01/17/17 07:27 Consult to Cardiology [CONS] Routine Comment: Consulting Provider: Cardiology Liliana Reason for Consult: pericardial effusion Call Completed: Yes 01/18/17 09:09 Consult to Physical Therapy [CONS] Stat Comment: Evaluate, develop and implement POC 01/18/17 09:10 Consult to Occupational Therapy [CONS] Stat Comment: Evaluate, develop and implement POC Discharging clinician: Estella Hutchinson Anticipated date of discharge: 01/19/17 - Patient Status Disposition: Home Health Service Condition: Good Functional capacity at discharge: uses cane/walker Overall status at discharge: patient is back to baseline - Ambulatory Orders Ambulatory Orders: Basic Metabolic Panel [CHEM] Time Frame: 1 Week, Facility: [facility], Location: Lab - Discharge Instructions Follow Up With: Sheri Milligan CNP [Partnered Physician] - 01/21/17 10:30 am Jamie Najera Jr, MD [Primary Care Provider] - Jamel Fernandes MD [Partnered Physician] - 01/26/17 1:00 pm Additional Instructions: Please follow up with your primary care physician and safety deposit clerk within one week after your discharge from the hospital. During this hospitalization you were noted to have acute kidney injury due to which your home dose of Captopril was stopped. Please continue to hold this medication until your follow up with your primary care physician. Please get your blood work done prior to your follow up with your primary care physician. You were also noted to have HR less than 60 due to which your home dose of Metoprolol dose was placed on hold. Please continue to hold this medication if you have HR less than 60 at home. If your HR is above 60 with SBP>120, you may resume this medication. You were also noted to have elevated TSH indicating of primary hypothyroidism for which Levothyroxine was added to your home medications. Please inform your primary care physician of this change. Please closely monitor your blood pressure at home. Please resume all your other home medications as prescribed by your primary care physician. - Diet and Activity Activity: as per physical therapy Diet: low salt diet Hospital course: Mr. Small is a 86 year old male with PMH of HTN, HLD, CAD, GERD who was transferred to [facility] for management of a pericardial effusion. Patient was also found to have KESHAWN and asymptomatic bradycardia. Patient was evaluated by cardiology and no further intervention was recommended. His home dose of NURYS inhibitor was placed on hold. He was also found to have bradycardia with normotensive BP due to which his home dose of metoprolol was placed on hold as well. He was further evaluated by physical therapy and home health was recommended. He responded well to supportive care and will discharged to home with follow up with his PCP and cardiology. He is currently hemodynamically stable and will be discharged to home today. Patient demonstrates understanding of his diagnosis and agrees with the discharge plan. - Time Spent with Patient Total time spent providing and/or coordinating discharge services: Greater than 30 minutes - Constitutional Vitals: Temp Pulse Resp BP Pulse Ox 98.4 F 55 16 132/73 92 01/19/17 11:25 01/19/17 11:25 01/19/17 11:25 01/19/17 11:25 01/19/17 11:25 General appearance: Present: cooperative, A&O X 3, pleasant, no acute distress, answers questions appropriately - Head Head exam: Present: atraumatic, normocephalic - Eye Eye exam: Present: conjuntiva pink, sclera anicteric - Respiratory Respiratory exam: Present: CTAB. Absent: respiratory distress, wheezes - Cardiovascular Cardiovascular exam: Present: RRR, +S1, +S2. Absent: diastolic murmur, gallop, rubs, systolic murmur - GI/Abdominal GI/Abdominal exam: Present: normal bowel sounds, soft, no peritoneal signs. Absent: distended, tenderness - Extremities Exam Extremities exam: Present: warm, radial pulses palpable and symetrical. Absent : calf tenderness, cyanotic, pedal edema - Neurological Exam Neurological exam: Present: alert, oriented X3 - Psychiatric Psychiatric exam: Present: normal affect, normal mood
--- NOTE | 2017-01-19 13:09 | Physician Discharge Referral ---
Home Health/Hosp Referral Info Transfer to: Home Health Provider in Charge Post Discharge: PCP - Diagnosis (1) Pericardial effusion Priority: Primary Status: Acute (2) Fbdis-eq-uvqrrul kidney injury Priority: Secondary Status: Acute (3) Hypothyroidism Priority: Secondary Status: Chronic (4) Hyperlipidemia Priority: Secondary Status: Chronic (5) Hypertension Priority: Secondary Status: Chronic (6) DVT prophylaxis Priority: Secondary Status: Acute - Respiratory Orders Smoking Cessation: Smoking cessation has been advised. For more information, call the [place] Tobacco Quit Line at 2-008-RWGL-NOW. - Services Needed Following services are medically necessary services: Nursing, Home Health Aide, Physical Therapy, Occupational Therapy - Transfer Medications Prescriptions: Levothyroxine Sodium [Synthroid] 137 mcg PO DAILY #30 tablet Home Medications: Carbidopa/Levodopa ER 50/200 [Sinemet ER 50-200 Tab] 1 tab PO BID 06/12/15 [ History] Omeprazole [PriLOSEC] 20 mg PO DAILY 06/12/15 [History] Primidone [Mysoline] 50 mg PO DAILY 06/12/15 [History] Latanoprost [Xalatan] 1 drop RIGHT EYE HS 04/27/16 [History] Polyvinyl Alcohol [Artificial Tears] 1 drop OP PRN PRN 04/27/16 [History] Clopidogrel [Plavix] 75 mg PO DAILY 30 Days 07/22/16 [Rx] Nitroglycerin 0.4 mg SL Q5MIN PRN #3 tab.subl 07/22/16 [Rx] Atorvastatin [Lipitor] 40 mg PO DAILY 01/16/17 [History] TraZODone 50 mg PO HS PRN 01/17/17 [History] Levothyroxine Sodium [Synthroid] 137 mcg PO DAILY #30 tablet 01/19/17 [Rx] Allergies/Adverse Reactions: Allergies naproxen Allergy (Verified 07/19/16 14:02) Itching Certification: Further, I certify that my clinical findings support that this patient is homebound (i.e. absences from home require considerable and taxing effort and are for medical reasons or congregation services or infrequently or short duration when for other reasons) because: Homebound Reason: Patient requires assistance of a person or device to safely leave home Attestation: My signature below is to certify that this patient is under my care and that I, or nurse practitioner, or a physician's veterinary assistant technician working with me, has a face-to -face encounter with this patient.
[2017-01-20 08:43] LABS: ANA IgG by ELISA NONE DETECTED (None Detected)
== END 2017-01-19 15:45 | disposition home health service (06) | DRG 315 ==
LOC: 2NNU
PROVIDERS: ADMIT Hospitalist; ATTEND Internal Medicine

== ENCOUNTER 2018-08-30 03:42 | Inpatient (IN) ==
[2018-08-30] MEDS ORDERED: Ondansetron 4 MG/2 ML VIAL IVP PRN (06:19)
[2018-08-30] MEDS ORDERED: Naloxone 0.4 MG/ML INJ IVP PRN (06:27)
[2018-08-30] MEDS ORDERED: Acetaminophen IV 1,000 MG/100 ML INFUS..BTL IVPB ONE (06:31)
[2018-08-30] MEDS ORDERED: OXYCODONE Oral CONC 10 MG/0.5 ML ORAL.SYG SL PRN (06:31)
--- NOTE | 2018-08-30 06:38 | Internal Med History&Physical ---
Date of Encounter: 08/30/18 Time of Encounter: 05:45 Internal Medicine - H&P: HPI Chief complaint: Abdominal pain/Nausea/Vomiting Admitted From: Intrahospital Transfer Plans for Post Hospital Care: Home History of present illness: Mr. Small is a 88 year old male w/PMH of arthritis, GERD, glaucoma bilaterally, HLD, HTN, previous myocardial infarction in 2016 with placement of one stent, renal disease and thyroid disease presents from the [place] [facility] with chief complaint of abdominal pain that patient states began Wednesday night approximately 20:00 after he ate. Patient reports nausea with vomiting. Patient began experiencing abdominal pain which worsened tonight with another episode of nausea and vomiting at approximately 21:00. Pt. denies previous hx of symptoms. Denies alcohol use. States pain in in epigastric area and RUQ. Reports previous appendectomy. No alleviating or aggravating factors. Patient denies recent illness, fever, chills, headache, changes in vision, unusual bleeding, chest pain, shortness of breath, diarrhea, constipation, cough, chest congestion, dizziness, lightheadedness, numbness, tingling, pre-syncope, or syncope. Past Med Surg Social Fam HX - Past Medical History Source: patient, old records reviewed Medical history: arthritis, GERD, glaucoma, hyperlipidemia, hypertension, myocardial infarction (2016 w/stent x1), renal disease, thyroid disease, other Additional medical history: Parkinsons Psychiatric history: anxiety - Past Surgical History Surgical History: angioplasty/stent (x1), knee replacement Additional surgical history: CABG, cardiac stent. Bilateral knees - Social History Smoking Status: Former smoker Packs per day: 1-1.5 PPD - Reports quitting many years ago Smokeless Tobacco Status: Yes Alcohol use: none Drug use: none Current living situation: Home Activity Level: Independent ambulation Recent Out of Country Travel Within the Last 8 Weeks: No Exposure or Possible Exposure to Illness During Travel: No - Family History Father Adopted: No Race: Family Member Ethnicity: Non- Living Status: Age at : 87 Cause of : PNA Hx Family Cardiac Disorders: Yes Mother Adopted: No Race: Family Member Ethnicity: Non- Living Status: Age at : 77 Cause of : CVA Hx Family Cardiac Disorders: Yes (CVA) Hx Family Neurologic Disorders: Yes (CVA) Brother Race: Family Member Ethnicity: Non- Living Status: Still Living Hx Family Cancer: Yes (Bladder) Sister Race: Family Member Ethnicity: Non- Living Status: Age at : 80 Cause of : CVA Hx Family Cardiac Disorders: Yes (CVA) Hx Family Neurologic Disorders: Yes (CVA, Alzheimer's disease) Internal Medicine - H&P: Meds Aspirin 81 mg PO DAILY 08/26/18 [History] Atorvastatin [Lipitor] 40 mg PO HS 08/26/18 [History] C/Sourcherry/Celery/Grape Seed [Tart Hurtado Capsule] 1 each PO DAILY 08/26/18 [History] Clopidogrel Bisulfate [Plavix] 75 mg PO DAILY 08/26/18 [History] Levothyroxine [Synthroid] 100 mcg PO DAILY 08/26/18 [History] Metoprolol [Lopressor] 25 mg PO BID 08/26/18 [History] Omeprazole [PriLOSEC] 20 mg PO DAILY 08/26/18 [History] Allergy/AdvReac Type Severity Reaction Status Date / Time naproxen Allergy Itching Verified 08/30/18 00:01 NSAIDS (Non-Steroidal Allergy Itching Verified 08/30/18 00:01 Anti-Inflamma All Systems PM: A 10-system review of systems was performed and is negative for pertinent findings except as documented above in the HPI. - Constitutional Constitutional: no chills, no fever(s), no night sweats - EENT Eyes: no change in vision, no discharge, no pain, no photophobia Ears: no ear discharge, no ear pain, no tinnitus Nose, mouth and throat: no dysphagia, no nasal discharge, no neck pain, no sore throat - Breasts Breasts: as per HPI - Cardiovascular Cardiovascular ROS IM: no chest pain, no diaphoresis, no dyspnea, no lightheadedness, no palpitations, no syncope - Respiratory Respiratory: no cough, no dyspnea, no wheezing, no excessive phlegm production - Gastrointestinal Gastrointestinal: as per HPI, abdominal pain, heartburn, nausea, vomiting, no diarrhea, no hematemesis, no hematochezia, no melena - Genitourinary Genitourinary ROS male: as per HPI - Musculoskeletal Musculoskeletal ROS IM: no numbness, no tingling - Integumentary Integumentary IM: as per HPI, other (Bruising from IV site on left hand during previous ED visit w/i the week), no rash, no unusual bruising - Neurological Neurological ROS: no confusion, no convulsions, no focal weakness, no numbness, no tingling, no tremor(s) - Psychiatric Psychiatric: as per HPI, anxiety - Endocrine Endocrine IM: as per HPI - Hematologic/Lymphatic Hematologic/Lymphatic: as per HPI, easy bruising - Allergic/Immunologic Allergic/Immunologic: as per HPI - Constitutional Vitals: Temp Pulse Resp BP Pulse Ox 98.7 F 45 15 155/65 95 08/30/18 05:33 08/30/18 05:33 08/30/18 05:33 08/30/18 05:33 08/30/18 05:33 General appearance: Present: cooperative, mild distress (Abdominal pain), A&O X 3, pleasant, obese, answers questions appropriately Exam: Patient examined at bedside. Patient was laying comfortably in bed but reports abdominal pain in epigastric area and right upper quadrant. Patient states he is not experiencing nausea and vomiting at this time. Denies chest pain, shortness of breath, or any other complaints on exam. VS: 98.7F temp, HR 45, RR 15, BP 155/65, SPO2 95% on room air. - Head Head exam: Present: atraumatic, normocephalic - Eye Eye exam: Present: PERRL, conjuntiva pink, sclera anicteric Pupils: Present: PERRL - ENT ENT exam: Present: normal exam - Neck Neck exam general surgery: Present: normal inspection, supple, trachea midline. Absent: lymphadenopathy - Respiratory Respiratory exam: Present: CTAB. Absent: accessory muscle use, rales, rhonchi, wheezes - Cardiovascular Cardiovascular exam: Present: +S1, +S2, tachycardia. Absent: diastolic murmur, gallop, rubs, systolic murmur - GI/Abdominal GI/Abdominal exam: Present: normal bowel sounds, soft, tenderness, no peritoneal signs. Absent: distended - Rectal Rectal exam: Present: deferred - Additional comments: exam deferred. - Extremities Exam Extremities exam: Present: warm, radial pulses palpable and symmetrical. Absent: calf tenderness, cyanotic, pedal edema - Back Exam Back exam: Present: normal inspection - Neurological Exam Neurological exam: Present: alert, CN II-XII intact, oriented X3, no focal deficits. Absent: pronater drift, facial droop, speech deficit - Psychiatric Psychiatric exam: Present: normal affect, normal mood - Skin Skin exam: Present: dry, intact Internal Med - H&P Results - Diagnostic Studies CT scan - abdomen Additional comments: EXAMINATION: CT OF THE ABDOMEN AND PELVIS WITH CONTRAST 08/30/2018 1:41 am TECHNIQUE: CT of the abdomen and pelvis was performed with the administration of intravenous contrast. Multiplanar reformatted images are provided for review. Dose modulation, iterative reconstruction, and/or weight based adjustment of the mA/kV was utilized to reduce the radiation dose to as low as reasonably achievable. COMPARISON: 08/26/2018 HISTORY: ORDERING SYSTEM PROVIDED HISTORY: abdominal pn, N/V, elevated amylase, lipase 75 ml of ISOVUE 370 FINDINGS: Lower Chest: No acute findings. Hiatal hernia is again seen. Organs: The gallbladder is again distended. There is now pericholecystic low-attenuation. No definite cholelithiasis is identified. The liver, spleen, pancreas, adrenal glands and kidneys are unremarkable. GI/Bowel: Small bowel caliber is normal. The patient is status post appendectomy. Sigmoid colon diverticula are noted without evidence for diverticulitis. Pelvis: The bladder is grossly negative. The prostate gland is enlarged. Peritoneum/Retroperitoneum: There is trace free fluid in the pelvis. There is no adenopathy. Aortic caliber is normal. Significant atherosclerotic plaque is noted. Bones/Soft Tissues: No acute findings. Old L1 compression fracture is again seen. CT/CT abd pelvis w iv no oral IMPRESSION: 1. Findings suggest acute cholecystitis. 2. Diverticulosis without scan evidence for diverticulitis. D/ / Rakesh Drake MD / Rakesh Drake MD Interpreting Provider: Rakesh Drake MD - Assessment and plan (1) Abdominal pain Current Visit: Yes Status: Acute Assessment and plan: Acute abdominal pain that patient states began Wednesday night approximately 20:00 after he ate. Patient reports nausea with vomiting. Patient began experiencing abdominal pain which worsened tonight with another episode nausea and vomiting approximately 21:00. Patient denies previous symptoms or alcohol use. States pain is in epigastric area and RUQ. US of the gallbladder ordered. NPO. 0.9 NS IV fluids @ 125 mls/hr. Dr. John consulted by [facility] and formal consult ordered. CT of the abdomen/pelvis shows gallbladder is distended. There is now pericholecystic low attenuation. No definite cholelithiasis is identified. The liver, spleen, pancreas, adrenal glands, and kidneys are unremarkable. Suggest acute cholecystitis. Diverticulosis without scan evidence for diverticulitis. Stair-step pain medications for pain mgmt. Pt. is high risk for further morbidity and complications based on previous ED visit and now return visit for same sx, CT imaging suggesting acute cholecystitis, abdominal pain, intractable nausea and vomiting, acutely elevated amylase and lipase, hx, and risk factors. Observation. Qualifiers: Abdominal location: epigastric Qualified Code(s): R10.13 - Epigastric pain (2) Elevated amylase and lipase Current Visit: Yes Status: Acute Assessment and plan: Acutely elevated amylase and lipase on admission. US of gallbladder ordered. Will monitor f/u labs closely. (3) Nausea & vomiting Current Visit: Yes Status: Acute Assessment and plan: Acute nausea and vomiting. IVP Zofran 4 mg. Q6HR PRN for N/V. Monitor I&O. NPO. Qualifiers: Vomiting type: cyclical vomiting Qualified Code(s): G43.A0 - Cyclical vomiting, not intractable (4) GERD (gastroesophageal reflux disease) Current Visit: Yes Status: Chronic Assessment and plan: Hx of chronic GERD. Will continue PO Prilosec when no longer NPO. Qualifiers: Esophagitis presence: esophagitis presence not specified Qualified Code(s): K21.9 - Gastro-esophageal reflux disease without esophagitis (5) HTN (hypertension) Current Visit: Yes Status: Chronic Assessment and plan: Hx of chronic HTN. Monitor pt. and VS. hold patient's by mouth HTN medications and administer IVP hydralazine with parameters d/t NPO status. Qualifiers: Hypertension type: essential hypertension Qualified Code(s): I10 - Essential (primary) hypertension (6) HLD (hyperlipidemia) Current Visit: Yes Status: Chronic Assessment and plan: Hx of chronic HLD. Lipid panel in a.m. labs. We will continue patient's by mouth statin when no longer nothing by mouth. Qualifiers: Hyperlipidemia type: pure hypercholesterolemia Qualified Code(s): E78.00 - Pure hypercholesterolemia, unspecified; E78.0 - Pure hypercholesterolemia (7) CKD (chronic kidney disease) stage 3, GFR 30-59 ml/min Current Visit: Yes Status: Chronic Assessment and plan: Hx of chronic CKD. Currently stage 3 w/GFR of 43 and creatinine of 1.53. Will monitor pts. I&O and f/u labs d/t high-flow IV fluids for suspected pancreatitis. Avoid nephrotoxins. (8) Thyroid disease Current Visit: Yes Status: Chronic Assessment and plan: Hx of chronic thyroid disease. Will continue PO Synthroid when no longer NPO. (9) CAD (coronary artery disease) Current Visit: Yes Status: Chronic Assessment and plan: Hx of chronic CAD. Pt. had previous DE in 2016 w/stent x1. HLD. HTN. Will continue PO meds when pt. no longer NPO. IVP Hydralazine w/parameters ordered. Continuous cardiac telemetry. Qualifiers: Coronary Disease-Associated Artery/Lesion type: [place] artery [place] vs. transplanted heart: [place] heart Associated angina: without angina Qualified Code(s): I25.10 - Atherosclerotic heart disease of [place] coronary artery without angina pectoris (10) DVT prophylaxis Current Visit: Yes Status: Acute Assessment and plan: Bilateral SCDs on LEs for DVT prophylaxis d/t possible surgical intervention. - Time Spent With Patient Total time spent is greater than 50% in coordination of care (as documented) at patient's floor/unit and/or counseling patient: Greater than 35 minutes
[2018-08-30] MEDS ORDERED: Piperacillin/Tazobactam 3.375 GM in 0.9 % Sodium Chloride Mini Bag 100 ML IVPB SCH (08:00)
[2018-08-30 08:08] LABS: Basophils % 0.4 %; Eosinophils # 0.2 K/mcL (0.0-0.6); Eosinophils % 3.1 %; Hematocrit 32.7 % (37.5-50.1); Hemoglobin 10.7 g/dL (12.9-16.9); Immature Granulocytes % 0.4 % (0-4); Lymphocytes % 17.7 %; Mean Corpuscular HGB Conc 32.7 g/dL (31.6-35.5); Mean Corpuscular Hemoglobin 29.2 pg (28.0-33.3); Mean Corpuscular Volume 89.3 fL (83.0-100.0); Mean Platelet Volume 10.4 fL (9.4-12.4); Monocytes # 0.4 K/mcL (0.0-1.3); Monocytes % 7.2 %; Neutrophils # 3.9 K/mcL (1.6-8.9); Platelet Count 144 K/mcL (140-400); Red Blood Count 3.66 M/mcL (4.19-5.50); Red Cell Distribution Width 13.5 % (11.5-14.5); Segmented Neutrophils % 71.2 %
[2018-08-30 08:32] LABS: Alanine Aminotransferase 14 Units/L (7-52); Albumin 3.6 g/dL (3.5-5.7); Albumin/Globulin Ratio 1.6 (1.1-2.2); Alkaline Phosphatase 96 Units/L (34-104); Aspartate Amino Transferase 103 Units/L (13-39); BUN/Creatinine Ratio 14 (6-26); Bilirubin,Total 0.7 mg/dL (0.3-1.0); Blood Urea Nitrogen 18 mg/dL (8-23); Calcium 8.5 mg/dL (8.6-10.3); Carbon Dioxide 26 mEq/L (23-29); Chloride 109 mEq/L (98-107); Globulin 2.2 g/dL (2.4-3.5); Glucose 106 mg/dL (70-105); Osmolality,Calculated 298 (280-300); Potassium 4.1 mEq/L (3.5-5.1); Sodium 143 mEq/L (136-145); Total Protein 5.8 g/dL (6.4-8.9); eGFR For Non-African Americans 51 (> 60)
[2018-08-30] MEDS: 0.9 % Sodium Chloride 1,000 ML IVC SCH ×2 (09:53→20:18)
[2018-08-30] MEDS: Aspirin 81 MG TAB.CHEW PO SCH (10:59)
--- NOTE | 2018-08-30 12:53 | General Surgery Consult Note ---
<Nieves Sanchez - Last Filed: 08/30/18 12:48> Date of Encounter: 08/30/18 Time of Encounter: 12:49 Assessment and Plan (1) Cholelithiasis Current Visit: Yes Status: Acute He reports a sudden onset of abd pain after eating fFriday which has worsened. He reports RUQ pain, n/v, exacerbated by meals. He is tender in the RUQ and epigastric and umbilical areas, less tender in the LUQ. 08/26/2018 CT of the abdomen and pelvis without contrast noted suspicion of gallbladder wall thickening although not well evaluated without IV contrast. G allbladder was moderately dilated and there was no calcified gallstones. Pancreas was unremarkable. 08/29/2018 CT of the abdomen and pelvis with IV without oral contrast noted distended gallbladder, Pericholecystic fluid and low attenuation, suggestive of acute cholecystitis. The pancreas is unremarkable on this imaging. 08/30/2018 ultrasound of the gallbladder noted mild gallbladder wall thickening, approximately 4 mm thick, cholelithiasis noted, trace PeriCholecystic fluid, negative Novak sign, common bile duct was 3 mm. Cholelithiasis with possible acute cholecystitis versus acute pancreatitis. Will collaborate with attending surgeon. Further recommendations pending. In the meantime see plan below. Plan: NPO IVF Repeat am labs Serial abdominal exams Qualifiers: Cholelithiasis location: gallbladder Cholecystitis presence: with cholecystitis Cholecystitis acuity: unspecified acuity Biliary obstruction: without biliary obstruction Qualified Code(s): K80.10 - Calculus 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 (2) Pancreatitis Current Visit: Yes Status: Acute Amylase greater than 2000 units, lipase greater than 1800, AST 103 units, ALT normal, direct bilirubin 0.4 WBC 5.5 on 08/30/2018 Qualifiers: Chronicity: acute Pancreatitis type: unspecified pancreatitis type Acute pancreatitis complication: no infection or necrosis Qualified Code(s): K85.90 - Acute pancreatitis without necrosis or infection, unspecified (3) Nausea & vomiting Current Visit: Yes Status: Acute see a/p above Qualifiers: Vomiting type: cyclical vomiting Qualified Code(s): G43.A0 - Cyclical vomiting, not intractable History of Present Illness Consult date: 08/29/18 (Dr. Armand John) Reason for consult: abdominal pain Requesting physician: Chiki Ventura History of present illness: Jonah is an 88 year old male with a pertinent history of Gerd, myocardial infarction and 2016 with PCI, CABG, and is on Plavix, additional past medical, social, and surgical history. Per the electronic medical record and updated were indicated. Surgery has been consulted for recommendations regarding abd pain, possible acute cholecystitis. He presented on 08/29/2018 following a 2 days history of RUQ pain, nausea, and vomiting following eating a meal. The pain has intensified and is now constant, radiates around from the belly [place] and upper abdomen to the right, is painful when pressed upon, rated 8 out of 10, and is relieved by not eating and pain medications. He denies fever, chills, headache, dizziness, chest pain, shortness of breath, changes in bowel habits, black, bloody, or tarry stool, increased Gerd symptoms, urinary signs or symptoms. Past Med Surg Social Fam HX - Past Medical History Source: patient Medical history: arthritis, GERD, glaucoma, hyperlipidemia, hypertension, myocardial infarction (2016 w/stent x1), renal disease, thyroid disease, other Additional medical history: Parkinsons Psychiatric history: anxiety - Past Surgical History Surgical History: angioplasty/stent (x1), appendectomy, knee replacement Additional surgical history: CABG, cardiac stent. Bilateral knees - Social History Smoking Status: Former smoker Packs per day: 1-1.5 PPD - Reports quitting many years ago Smokeless Tobacco Status: Yes Alcohol use: none Drug use: none - Family History Brother Race: Family Member Ethnicity: Non- Living Status: Still Living Hx Family Cancer: Yes (Bladder) Sister Race: Family Member Ethnicity: Non- Living Status: Age at : 80 Cause of : CVA Hx Family Cardiac Disorders: Yes (CVA) Hx Family Neurologic Disorders: Yes (CVA, Alzheimer's disease) Father Adopted: No Race: Family Member Ethnicity: Non- Living Status: Age at : 86 Cause of : PNA Hx Family Cardiac Disorders: Yes Mother Adopted: No Race: Family Member Ethnicity: Non- Living Status: Age at : 77 Cause of : CVA Hx Family Cardiac Disorders: Yes (CVA) Hx Family Neurologic Disorders: Yes (CVA) Medications and Allergies Aspirin 81 mg PO DAILY 08/26/18 [History] Omeprazole [PriLOSEC] 20 mg PO DAILY 08/26/18 [History] Atorvastatin [Lipitor] 40 mg PO HS 08/31/18 [History] Carbidopa/Levodopa ER 50/200 [Sinemet ER 50-200 TAB] 1 each PO BID 08/31/18 [History] Clopidogrel [Plavix] 75 mg PO DAILY 08/31/18 [History] Levothyroxine [Synthroid] 100 mcg PO QAM 08/31/18 [History] Metoprolol [Lopressor] 25 mg PO BID 08/31/18 [History] Multivit-Min/FA/Lycopen/Lutein [A Thru Z Select Multivit Tab] 1 tab PO DAILY 08/31/18 [History] Ramelteon [Rozerem] 8 mg PO HS PRN 08/31/18 [History] Allergy/AdvReac Type Severity Reaction Status Date / Time naproxen Allergy Itching Verified 08/30/18 00:01 NSAIDS (Non-Steroidal Allergy Itching Verified 08/30/18 00:01 Anti-Inflamma Review of Systems All systems PM: reviewed and no additional remarkable complaints except as stated All systems PM: The remainder of the systems were reviewed and are negative General Surgery Exam Initial Vital Signs Temp Pulse Resp BP Pulse Ox 98.7 F 45 15 155/65 95 08/30/18 05:33 08/30/18 05:33 08/30/18 05:33 08/30/18 05:33 08/30/18 05:33 VITAL SIGNS: Reviewed. See [facility] GENERAL: In no apparent distress. HEENT: Normocephalic, atraumatic, pupils are equal and reactive, extraocular motions intact, oropharynx is pink and moist, there is no neck adenopathy or JVD noted. CHEST/RESPIRATORY: The thorax is free from signs of trauma. Lung sounds: clear to auscultation, normal respiratory effort CARDIAC: bradycardia rate and rhythm. Normal S1 and S2, without murmurs, gallops, or rubs. VASCULAR: No Edema. 2+ peripheral pulses. ABDOMEN: soft, positive Novak sign, right upper quadrant epigastric tenderne ss, active bowel sounds MUSCULOSKELETAL: Good range of motion of all major joints. Extremities without clubbing, cyanosis or edema. NEUROLOGIC EXAM: Alert and oriented x 3. Speech normal. Follows commands. PSYCHIATRIC: Mood normal. SKIN: No rash or lesions. Large area of ecchymosis encompassing the left hand which patient states appeared today. Exam Initial Vital Signs Temp Pulse Resp BP Pulse Ox 98.7 F 45 15 155/65 95 08/30/18 05:33 08/30/18 05:33 08/30/18 05:33 08/30/18 05:33 08/30/18 05:33 Results - Labs 08/30/18 07:41 08/30/18 07:41 Abnormal lab results RBC 3.66 M/mcL (4.19-5.50) L 08/30/18 07:41 Hgb 10.7 g/dL (12.9-16.9) L 08/30/18 07:41 Hct 32.7 % (37.5-50.1) L 08/30/18 07:41 Chloride 109 mEq/L (98-107) H 08/30/18 07:41 Creatinine 1.32 mg/dL (0.70-1.30) H 08/30/18 07:41 Est GFR (Non-Af Amer) 51 (> 60) L 08/30/18 07:41 Glucose 106 mg/dL (70-105) H 08/30/18 07:41 Calcium 8.5 mg/dL (8.6-10.3) L 08/30/18 07:41 AST 103 Units/L (13-39) H 08/30/18 07:41 Serum Total Protein 5.8 g/dL (6.4-8.9) L 08/30/18 07:41 Globulin 2.2 g/dL (2.4-3.5) L 08/30/18 07:41 Diabetes panel 08/30/18 08/30/18 Range/Units 07:07 07:41 Sodium 143 (136-145) mEq/L Potassium 4.1 (3.5-5.1) mEq/L Chloride 109 H (98-107) mEq/L Carbon Dioxide 26 (23-29) mEq/L BUN 18 (8-23) mg/dL Creatinine 1.32 H (0.70-1.30) mg/dL Glucose 106 H (70-105) mg/dL Calcium 8.5 L (8.6-10.3) mg/dL AST 103 H (13-39) Units/L ALT 14 (7-52) Units/L Alkaline Phosphatase 96 (34-104) Units/L Albumin 3.6 (3.5-5.7) g/dL Triglycerides 144 (< 150) mg/dL Calcium panel 08/30/18 Range/Units 07:41 Calcium 8.5 L (8.6-10.3) mg/dL Albumin 3.6 (3.5-5.7) g/dL Pituitary panel 08/30/18 Range/Units 07:41 Sodium 143 (136-145) mEq/L Potassium 4.1 (3.5-5.1) mEq/L Chloride 109 H (98-107) mEq/L Carbon Dioxide 26 (23-29) mEq/L BUN 18 (8-23) mg/dL Creatinine 1.32 H (0.70-1.30) mg/dL Glucose 106 H (70-105) mg/dL Calcium 8.5 L (8.6-10.3) mg/dL Adrenal panel 08/30/18 Range/Units 07:41 Sodium 143 (136-145) mEq/L Potassium 4.1 (3.5-5.1) mEq/L Chloride 109 H (98-107) mEq/L Carbon Dioxide 26 (23-29) mEq/L BUN 18 (8-23) mg/dL Creatinine 1.32 H (0.70-1.30) mg/dL Glucose 106 H (70-105) mg/dL Calcium 8.5 L (8.6-10.3) mg/dL Total Bilirubin 0.7 (0.3-1.0) mg/dL AST 103 H (13-39) Units/L ALT 14 (7-52) Units/L Alkaline Phosphatase 96 (34-104) Units/L Albumin 3.6 (3.5-5.7) g/dL All other labs normal. - Imaging CT scan - abdomen: report reviewed, image reviewed CT scan - pelvis: report reviewed, image reviewed US - abdomen: report reviewed Consult Discharge Plan - Plan Referrals: Torsten Momin MD [Primary Care Provider] - <Armand John - Last Filed: 09/01/18 07:29> Date of Encounter: 08/30/18 Assessment and Plan (1) Pancreatitis Current Visit: Yes Status: Acute Qualifiers: Chronicity: acute Pancreatitis type: unspecified pancreatitis type Acute pancreatitis complication: no infection or necrosis Qualified Code(s): K85.90 - Acute pancreatitis without necrosis or infection, unspecified (2) Nausea & vomiting Current Visit: Yes Status: Acute Qualifiers: Vomiting type: cyclical vomiting Qualified Code(s): G43.A0 - Cyclical vomiting, not intractable (3) Cholelithiasis Current Visit: Yes Status: Acute Qualifiers: Cholelithiasis location: gallbladder Cholecystitis presence: with cholecystitis Cholecystitis acuity: unspecified acuity Biliary obstruction: without biliary obstruction Qualified Code(s): K80.10 - Calculus 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 Review of Systems All systems PM: The remainder of the systems were reviewed and are negative General Surgery Exam Initial Vital Signs Temp Pulse Resp BP Pulse Ox 98.7 F 45 15 155/65 95 08/30/18 05:33 08/30/18 05:33 08/30/18 05:33 08/30/18 05:33 08/30/18 05:33 Exam Initial Vital Signs Temp Pulse Resp BP Pulse Ox 98.7 F 45 15 155/65 95 08/30/18 05:33 08/30/18 05:33 08/30/18 05:33 08/30/18 05:33 08/30/18 05:33 Results - Labs 09/01/18 05:25 09/01/18 05:25 Abnormal lab results RBC 3.47 M/mcL (4.19-5.50) L 08/31/18 04:40 Hgb 10.1 g/dL (12.9-16.9) L 08/31/18 04:40 Hct 31.0 % (37.5-50.1) L 08/31/18 04:40 Chloride 109 mEq/L (98-107) H 08/31/18 04:40 Calcium 8.2 mg/dL (8.6-10.3) L 08/31/18 04:40 AST 42 Units/L (13-39) H 08/31/18 04:40 Lactate Dehydrogenase 125 Units/L (140-271) L 08/30/18 15:01 Serum Total Protein 5.6 g/dL (6.4-8.9) L 08/31/18 04:40 Albumin 3.4 g/dL (3.5-5.7) L 08/31/18 04:40 Globulin 2.2 g/dL (2.4-3.5) L 08/31/18 04:40 Triglycerides 166 mg/dL (< 150) H 08/31/18 09:40 VLDL Cholesterol, Calc 33 mg/dL (< 31) H 08/31/18 09:40 HDL Cholesterol 22 mg/dL (40-59) L 08/31/18 09:40 Amylase 439 Units/L (29-103) H 08/31/18 04:40 Lipase 253 Units/L (11-82) H 08/31/18 04:40 Diabetes panel 08/30/18 08/31/18 08/31/18 Range/Units 15:01 04:40 09:40 Sodium 141 (136-145) mEq/L Potassium 3.6 (3.5-5.1) mEq/L Chloride 109 H (98-107) mEq/L Carbon Dioxide 24 (23-29) mEq/L BUN 16 (8-23) mg/dL Creatinine 1.10 (0.70-1.30) mg/dL Glucose 76 (70-105) mg/dL Hemoglobin A1c 5.6 ( - 5.6) % Calcium 8.2 L (8.6-10.3) mg/dL AST 42 H (13-39) Units/L ALT 27 (7-52) Units/L Alkaline Phosphatase 70 (34-104) Units/L Albumin 3.4 L (3.5-5.7) g/dL Triglycerides 166 H (< 150) mg/dL HDL Cholesterol 22 L (40-59) mg/dL Calcium panel 08/31/18 Range/Units 04:40 Calcium 8.2 L (8.6-10.3) mg/dL Albumin 3.4 L (3.5-5.7) g/dL Pituitary panel 08/31/18 Range/Units 04:40 Sodium 141 (136-145) mEq/L Potassium 3.6 (3.5-5.1) mEq/L Chloride 109 H (98-107) mEq/L Carbon Dioxide 24 (23-29) mEq/L BUN 16 (8-23) mg/dL Creatinine 1.10 (0.70-1.30) mg/dL Glucose 76 (70-105) mg/dL Calcium 8.2 L (8.6-10.3) mg/dL Adrenal panel 11/14/18 Range/Units 04:40 Sodium 141 (136-145) mEq/L Potassium 3.6 (3.5-5.1) mEq/L Chloride 109 H (98-107) mEq/L Carbon Dioxide 24 (23-29) mEq/L BUN 16 (8-23) mg/dL Creatinine 1.10 (0.70-1.30) mg/dL Glucose 76 (70-105) mg/dL Calcium 8.2 L (8.6-10.3) mg/dL Total Bilirubin 0.9 (0.3-1.0) mg/dL AST 42 H (13-39) Units/L ALT 27 (7-52) Units/L Alkaline Phosphatase 70 (34-104) Units/L Albumin 3.4 L (3.5-5.7) g/dL All other labs normal. - Attending Attestation I have personally performed a face to face evaluation on this patient. I have reviewed and agree with the care plan. History and Exam by me shows: I reviewed the assessment and evaluation and agree with the above plan. Patient is readmitted with recurrent pancreatitis. He admits to epigastric abdominal pain but no vomiting. Labs demonstrated a lipase level greater than 1800. Ultrasound does show evidence of gallstones. He polishing machine tender to palpation on examination. We will keep him nothing by mouth and start IV fluids. Tentative plan will be to plan for a laparoscopic cholecystectomy with cholangiogram once his lipase values have decreased to normal or near-normal levels. This would correspond with decreased inflammation in the right upper quadrant which will make the surgical procedure that much easier. Will follow with you.
--- NOTE | 2018-08-30 14:43 | Internal Med Progress Note ---
Hospitalist Progress Note - Encounter Date of Encounter: 08/30/18 Time of Encounter: 08:15 - Subjective Interval History: jai was seen adn examiend at bedside . is uncooperative with providing history so he history is limited. As per patient he developed right upper quadrant abdominal pain 2 days prior to admission which has progressively worsened and is associated with nausea and vomiting. He reports the pain is constant and radiates around the bellybutton. he denies fever, chills, CP, SOB, cough, palpitations, N/v/D - Exam Vitals: Temp Pulse Resp BP Pulse Ox 98.3 F 45 18 118/62 94 08/30/18 12:09 08/30/18 12:09 08/30/18 12:09 08/30/18 12:09 08/30/18 12:09 Exam: General: Patient is alert, oriented, no acute distress, Head: atraumatic, normocephalic, Eye: normal appearance, PERRL, no scleral icterus, no conjunctival injection ENT: mucous membranes moist, normal external ear exam Neck: normal inspection, trachea midline, full ROM, no carotid bruits Chest: normal inspection, symmetric chest rise Respiratory: Good respiratory effort. Bilateral breath sounds are clear without wheezing, crackles, or rhonchi. Cardiovascular: Regular rate and rhythm. s1 and s2 No clicks, rubs, gallops, or murmors. Abdomen: Bowel sounds present normoactive x-4 quadrants. Abdomen is soft, +ve novak sign, no flank discoloration, musculoskeletal: Spontaneously moving all extremities. no edema, no calf tenderness Skin: warm, dry, intact. Ecchymosis of the left hand extending to mid forearm. Neuro: Alert and oriented x4. Sensation light touch intact. Cranial nerves 2- 12 is intact. Not aphasic, gait is steady, rapid hand movements intact, [id number] intact, Psych: Patient's affect is normal - Assessment and Plan (1) Cholelithiasis Current Visit: Yes Status: Acute Assessment and Plan: gall bladder wall thickening along with cholelithiasis surgery on board will follow recommendations continue IVF IV zosyn Bcx in process will follow RUQ US : IMPRESSION: Cholelithiasis with mild gallbladder wall thickening and pericholecystic fluid. Although there is a negative sonographic Novak's sign, this can be seen with acute cholecystitis in the proper clinical setting. CT A/P: IMPRESSION: 1. Findings suggest acute cholecystitis. 2. Diverticulosis without scan evidence for diverticulitis. (2) Acute pancreatitis Current Visit: Yes Status: Acute Assessment and Plan: etiology unclear ( gallstones vs denies alcohol use AST >2x of ALT vs medication induced ruled out HyperTG induced TG levels are 144 ) ) Amylase >2000 lipase >1800 AST 103 ALT 14 Utox serial abdominal exam NPO pain control continue IVF - watch for overload MRCP stat LDH, lactic acid, A1c STAT (3) CAD (coronary artery disease) Current Visit: Yes Status: Chronic Assessment and Plan: previous PA in 2016 w/stent x1. continue ASA and home medications once confirmed Admission EKG (4) GERD (gastroesophageal reflux disease) Current Visit: Yes Status: Chronic Assessment and Plan: IV PPI as he is NPO (5) HTN (hypertension) Current Visit: Yes Status: Chronic Assessment and Plan: po medications on hold as he is NPO IV hydralazine PRN for elevated BP (6) CKD (chronic kidney disease) stage 3, GFR 30-59 ml/min Current Visit: Yes Status: Chronic Assessment and Plan: baseline creatinine about 1.3- 1.5 currently at 1.32 continue to monitor renal functions avoid nephrotoxic medications continue IVF - watch for overload (7) HLD (hyperlipidemia) Current Visit: Yes Status: Chronic Assessment and Plan: continue home dose statins lipid panel reviewed (8) Thyroid disease Current Visit: Yes Status: Chronic Assessment and Plan: continue home medications (9) DVT prophylaxis Current Visit: Yes Status: Acute Assessment and Plan: heparin sc - Time Spent with Patient Total time spent is greater than 50% in coordination of care (as documented) at patient's floor/unit and/or counseling patient: Internal Medicine: Result - Labs CBC & Chem 7: 08/30/18 07:41 08/30/18 07:41 Labs: Short CBC 08/30/18 Range/Units 07:41 WBC 5.5 (4.3-11.1) K/mcL Hgb 10.7 L (12.9-16.9) g/dL Hct 32.7 L (37.5-50.1) % Plt Count 144 (140-400) K/mcL Neutrophils # 3.9 (1.6-8.9) K/mcL BMP 08/30/18 07:41 Sodium 143 Potassium 4.1 Chloride 109 H Carbon Dioxide 26 BUN 18 Creatinine 1.32 H Glucose 106 H Calcium 8.5 L Liver Function 08/30/18 Range/Units 07:41 Total Bilirubin 0.7 (0.3-1.0) mg/dL AST 103 H (13-39) Units/L ALT 14 (7-52) Units/L Alkaline Phosphatase 96 (34-104) Units/L Albumin 3.6 (3.5-5.7) g/dL - Impressions Impressions Gallbladder Ultrasound 08/30/18 09:00 IMPRESSION: Cholelithiasis with mild gallbladder wall thickening and pericholecystic fluid. Although there is a negative sonographic Novak's sign, this can be seen with acute cholecystitis in the proper clinical setting. 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 t ransplanted heart: [place] heart Associated angina: without angina Qualified Code(s): I25.10 - Atherosclerotic heart disease of [place] coronary artery without angina pectoris (4) GERD (gastroesophageal reflux disease) Qualifiers: Esophagitis presence: esophagitis presence not specified Qualified Code(s): K21.9 - Gastro-esophageal reflux disease without esophagitis (5) HTN (hypertension) Qualifiers: Hypertension type: essential hypertension Qualified Code(s): I10 - Essential (primary) hypertension (7) HLD (hyperlipidemia) Qualifiers: Hyperlipidemia type: pure hypercholesterolemia Qualified Code(s): E78.00 - Pure hypercholesterolemia, unspecified; E78.0 - Pure hypercholesterolemia
[2018-08-30 16:24] LABS: Estimated Average Glucose 114 mg/dl; Hemoglobin A1C 5.6 %
[2018-08-30] MEDS: Thiamine (B-1) 100 MG in D5% in Water 50 ML IVPB SCH (17:20)
[2018-08-30] MEDS: *HR* Heparin 5,000 UNIT/ML VIAL SQ SCH (21:28)
[2018-08-30] MEDS: Piperacillin/Tazobactam 3.375 GM in 0.9 % Sodium Chloride Mini Bag 100 ML IVPB SCH (22:49)
[2018-08-31] MEDS: 0.9 % Sodium Chloride 1,000 ML IVC SCH ×3 (03:52→21:12)
[2018-08-31 05:03] LABS: Basophils % 0.4 %; Eosinophils # 0.2 K/mcL (0.0-0.6); Eosinophils % 4.6 %; Hemoglobin 10.1 g/dL (12.9-16.9); Immature Granulocytes % 0.6 % (0-4); Lymphocytes # 1.1 K/mcL (0.6-4.6); Lymphocytes % 21.4 %; Mean Corpuscular HGB Conc 32.6 g/dL (31.6-35.5); Mean Corpuscular Hemoglobin 29.1 pg (28.0-33.3); Mean Corpuscular Volume 89.3 fL (83.0-100.0); Mean Platelet Volume 10.7 fL (9.4-12.4); Monocytes # 0.4 K/mcL (0.0-1.3); Monocytes % 7.6 %; Neutrophils # 3.5 K/mcL (1.6-8.9); Platelet Count 141 K/mcL (140-400); Red Blood Count 3.47 M/mcL (4.19-5.50); Red Cell Distribution Width 13.7 % (11.5-14.5); Segmented Neutrophils % 65.4 %
[2018-08-31 05:21] LABS: Alanine Aminotransferase 27 Units/L (7-52); Albumin 3.4 g/dL (3.5-5.7); Albumin/Globulin Ratio 1.5 (1.1-2.2); Alkaline Phosphatase 70 Units/L (34-104); Aspartate Amino Transferase 42 Units/L (13-39); BUN/Creatinine Ratio 15 (6-26); Bilirubin,Total 0.9 mg/dL (0.3-1.0); Blood Urea Nitrogen 16 mg/dL (8-23); Calcium 8.2 mg/dL (8.6-10.3); Carbon Dioxide 24 mEq/L (23-29); Chloride 109 mEq/L (98-107); Globulin 2.2 g/dL (2.4-3.5); Glucose 76 mg/dL (70-105); Magnesium 1.9 mg/dL (1.6-2.6); Osmolality,Calculated 292 (280-300); Potassium 3.6 mEq/L (3.5-5.1); Sodium 141 mEq/L (136-145); Total Protein 5.6 g/dL (6.4-8.9); eGFR For Non-African Americans > 60 (> 60)
[2018-08-31] MEDS: Piperacillin/Tazobactam 3.375 GM in 0.9 % Sodium Chloride Mini Bag 100 ML IVPB SCH ×3 (05:41→21:11)
[2018-08-31] MEDS: *HR* Heparin 5,000 UNIT/ML VIAL SQ SCH ×3 (05:41→21:12)
--- NOTE | 2018-08-31 08:26 | Internal Med Progress Note ---
Hospitalist Progress Note - Encounter Date of Encounter: 08/31/18 Time of Encounter: 08:24 - Subjective Interval History: Patient with history of GERD, high cholesterol, hypertension, CAD with stent in the past patient admitted with abdominal pain nauseaand vomiting CT of the abdomen showed gallbladder distention and thickening, mri shows cholecystitis also had very high lipase and amylase which is now comming down surgery is following and plan from surgery standpoint to start . Clearly liquid diet with and plan on surgery may be tomorrow follow-up today patient stated he is feeling better less abdominal pain no nausea vomiting - Exam Vitals: Temp Pulse Resp BP Pulse Ox 98.3 F 54 16 129/51 93 08/31/18 06:24 08/31/18 06:24 08/31/18 06:24 08/31/18 06:24 08/31/18 04:07 Exam: General: Patient is alert, oriented, no acute distress, Head: atraumatic, normocephalic, Eye: normal appearance, PERRL, no scleral icterus, no conjunctival injection ENT: mucous membranes moist, normal external ear exam Neck: normal inspection, trachea midline, full ROM, no carotid bruits Chest: normal inspection, symmetric chest rise Respiratory: Good respiratory effort. Bilateral breath sounds are clear without wheezing, crackles, or rhonchi. Cardiovascular: Regular rate and rhythm. s1 and s2 No clicks, rubs, gallops, or murmors. Abdomen: Bowel sounds present normoactive x-4 quadrants. Abdomen is soft, +ve novak sign, no flank discoloration, musculoskeletal: Spontaneously moving all extremities. no edema, no calf tenderness Skin: warm, dry, intact. Ecchymosis of the left hand extending to mid forearm. Neuro: Alert and oriented x4. Sensation light touch intact. Cranial nerves 2- 12 is intact. Not aphasic, gait is steady, rapid hand movements intact, [id number] intact, Psych: Patient's affect is normal - Assessment and Plan (1) CAD (coronary artery disease) Current Visit: Yes Status: Chronic Assessment and Plan: Patient with history of OH in the past and had a stent placed on no chest pain will continue on current medication (2) Pancreatitis, acute Current Visit: No Status: Acute Assessment and Plan: Acute pancreatitis most likely secondary to gallbladder issues CT of the abdomen and also MRI confirms cholecystitis surgery following and plan on elective surgery (3) HTN (hypertension) Current Visit: Yes Status: Chronic Assessment and Plan: Chronic we will continue home medication (4) HLD (hyperlipidemia) Current Visit: Yes Status: Chronic (5) CKD (chronic kidney disease) stage 3, GFR 30-59 ml/min Current Visit: Yes Status: Chronic (6) Nausea & vomiting Current Visit: Yes Status: Acute (7) Cholelithiasis Current Visit: Yes Status: Acute Assessment and Plan: Acute: cholecystitis (8) Acute pancreatitis Current Visit: Yes Status: Acute Assessment and Plan: Lipase 253 and malaise for 39 comming down - Time Spent with Patient Total time spent is greater than 50% in coordination of care (as documented) at patient's floor/unit and/or counseling patient: Internal Medicine: Result - Labs CBC & Chem 7: 08/31/18 04:40 08/31/18 04:40 Labs: Short CBC 08/31/18 Range/Units 04:40 WBC 5.3 (4.3-11.1) K/mcL Hgb 10.1 L (12.9-16.9) g/dL Hct 31.0 L (37.5-50.1) % Plt Count 141 (140-400) K/mcL Neutrophils # 3.5 (1.6-8.9) K/mcL BMP 08/30/18 08/31/18 07:41 04:40 Sodium 143 141 Potassium 4.1 3.6 Chloride 109 H 109 H Carbon Dioxide 26 24 BUN 18 16 Creatinine 1.32 H 1.10 Glucose 106 H 76 Calcium 8.5 L 8.2 L Liver Function 08/30/18 08/31/18 Range/Units 07:41 04:40 Total Bilirubin 0.7 0.9 (0.3-1.0) mg/dL AST 103 H 42 H (13-39) Units/L ALT 14 27 (7-52) Units/L Alkaline Phosphatase 96 70 (34-104) Units/L Albumin 3.6 3.4 L (3.5-5.7) g/dL - Impressions Impressions Gallbladder Ultrasound 08/30/18 09:00 IMPRESSION: Cholelithiasis with mild gallbladder wall thickening and pericholecystic fluid. Although there is a negative sonographic Novak's sign, this can be seen with acute cholecystitis in the proper clinical setting. D/ / 08/30/2018 10:07:05 Vineet Shankar MD / Charis Monzon Interpreting Provider: Vineet Shankar MD Abdomen MRI 08/30/18 14:46 IMPRESSION: Findings most likely suggesting acute cholecystitis. No choledocholithiasis. D/ / 08/30/2018 17:56:35 Dustin Corral MD / micaela Interpreting Provider: Dustin Corral MD Consult Discharge Plan - Plan Referrals: Torsten Momin MD [Primary Care Provider] - (1) CAD (coronary artery disease) Qualifiers: Coronary Disease-Associated Artery/Lesion type: [place] artery [place] vs. transplanted heart: mus[place]ogee heart Associated angina: without angina Qualified Code(s): I25.10 - Atherosclerotic heart disease of [place] coronary artery without angina pectoris (2) Pancreatitis, acute Qualifiers: Pancreatitis type: biliary Acute pancreatitis complication: no infection or necrosis Qualified Code(s): K85.10 - Biliary acute pancreatitis without necrosis or infection (3) HTN (hypertension) Qualifiers: Hypertension type: essential hypertension Qualified Code(s): I10 - Essential (primary) hypertension (4) HLD (hyperlipidemia) Qualifiers: Hyperlipidemia type: pure hypercholesterolemia Qualified Code(s): E78.00 - Pure hypercholesterolemia, unspecified; E78.0 - Pure hypercholesterolemia (6) Nausea & vomiting Qualifiers: Vomiting type: cyclical vomiting Qualified Code(s): G43.A0 - Cyclical vomiting, not intractable (7) Cholelithiasis Qualifiers: Cholelithiasis location: gallbladder Cholecystitis presence: with cholecystitis Cholecystitis acuity: unspecified acuity Biliary obstruction: without biliary obstruction Qualified Code(s): K80.10 - Calculus 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 (8) Acute pancreatitis Qualifiers: Pancreatitis type: biliary
--- NOTE | 2018-08-31 09:12 | General Surgery Progress Note ---
<Armand John Kenan - Last Filed: 08/31/18 14:52> Date of Encounter: 08/31/18 Time of Encounter: 14:52 - Assessment and Plan (1) Pancreatitis Current Visit: Yes Status: Acute Qualifiers: Chronicity: acute Pancreatitis type: unspecified pancreatitis type Acute pancreatitis complication: no infection or necrosis Qualified Code(s): K85.90 - Acute pancreatitis without necrosis or infection, unspecified (2) Nausea & vomiting Current Visit: Yes Status: Acute Qualifiers: Vomiting type: cyclical vomiting Qualified Code(s): G43.A0 - Cyclical vomiting, not intractable (3) Cholelithiasis Current Visit: Yes Status: Acute Qualifiers: Cholelithiasis location: gallbladder Cholecystitis presence: with cholecystitis Cholecystitis acuity: unspecified acuity Biliary obstruction: without biliary obstruction Qualified Code(s): K80.10 - Calculus 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 Objective Vital Signs - Last 8 Hours Temp Pulse Resp BP Pulse Ox 08/31/18 14:05 98.6 F 63 15 176/68 95 Intake and Output 08/30/18 08/31/18 08/31/18 23:59 07:59 15:59 Intake Total 1051 / 1051 1100 / 1100 1580 / 1580 Output Total 650 / 650 Balance 1051 / 1051 450 / 450 1580 / 1580 Intake: IV Fluids 1051 / 1051 1100 / 1100 1100 / 1100 0.9 % Sodium Chloride 1,000 ML 1000 / 1000 1000 / 1000 1000 / 1000 @ 125 mls/hr IVC .Q8H JENNA Rx#: [id number] Zosyn 3.375 GM In 0.9 % Sodium 100 / 100 100 / 100 Chloride (Mini-Bag +) 100 ML @ 25 mls/hr IVPB Q8H JENNA Rx#: [id number] Vitamin B-1 100 MG In Dextrose 51 / 51 5% 50 ML @ 50 mls/hr IVPB DAILY JENNA Rx#:[id number] Oral 0 / 0 480 / 480 Output: Urine 650 / 650 Other: Meal CLEARS # Bowel Movements 0 Weight 86.5 kg Blood Glucose* 79 64 Patient Weight 08/31/18 23:59 Weight 86.5 kg - Labs 08/31/18 04:40 08/31/18 04:40 Diabetes panel 08/30/18 08/31/18 08/31/18 Range/Units 15:01 04:40 09:40 Sodium 141 (136-145) mEq/L Potassium 3.6 (3.5-5.1) mEq/L Chloride 109 H (98-107) mEq/L Carbon Dioxide 24 (23-29) mEq/L BUN 16 (8-23) mg/dL Creatinine 1.10 (0.70-1.30) mg/dL Glucose 76 (70-105) mg/dL Hemoglobin A1c 5.6 ( - 5.6) % Calcium 8.2 L (8.6-10.3) mg/dL AST 42 H (13-39) Units/L ALT 27 (7-52) Units/L Alkaline Phosphatase 70 (34-104) Units/L Albumin 3.4 L (3.5-5.7) g/dL Triglycerides 166 H (< 150) mg/dL HDL Cholesterol 22 L (40-59) mg/dL Calcium panel 08/31/18 Range/Units 04:40 Calcium 8.2 L (8.6-10.3) mg/dL Albumin 3.4 L (3.5-5.7) g/dL Pituitary panel 08/31/18 Range/Units 04:40 Sodium 141 (136-145) mEq/L Potassium 3.6 (3.5-5.1) mEq/L Chloride 109 H (98-107) mEq/L Carbon Dioxide 24 (23-29) mEq/L BUN 16 (8-23) mg/dL Creatinine 1.10 (0.70-1.30) mg/dL Glucose 76 (70-105) mg/dL Calcium 8.2 L (8.6-10.3) mg/dL Adrenal panel 08/31/18 Range/Units 04:40 Sodium 141 (136-145) mEq/L Potassium 3.6 (3.5-5.1) mEq/L Chloride 109 H (98-107) mEq/L Carbon Dioxide 24 (23-29) mEq/L BUN 16 (8-23) mg/dL Creatinine 1.10 (0.70-1.30) mg/dL Glucose 76 (70-105) mg/dL Calcium 8.2 L (8.6-10.3) mg/dL Total Bilirubin 0.9 (0.3-1.0) mg/dL AST 42 H (13-39) Units/L ALT 27 (7-52) Units/L Alkaline Phosphatase 70 (34-104) Units/L Albumin 3.4 L (3.5-5.7) g/dL Consult Discharge Plan - Plan Referrals: Torsten Momin MD [Primary Care Provider] - - Attending Attestation I examined this patient and my medical decision-making was reviewed with the Resident Physician. I agree with the documented findings, disposition and treatment plan as described except to the extent set forth below. I reviewed the above assessment and evaluation and agree with the above plan. Patient still has some abdominal pain but states that has improved. No nausea or vomiting. We started him on clear liquids and he is tolerating this well t emmy. Mild tenderness to palpation epigastric region. Amylase and lipase values are still elevated. Will continue with clears and recheck his amylase and lipase in the morning. If they have continued to decrease significantly then potentially we will plan for surgery. We will continue to follow. <Claus Gonzalez - Last Filed: 08/31/18 17:12> Date of Encounter: 08/31/18 - Assessment and Plan (1) Cholecystitis Current Visit: Yes Status: Acute CT abdomen/pelvis (08/26) concerning for gallbladder wall thickening CT abdomen/pelvis (08/29) showed distended gallbladder with pericholecystic fluid US RUQ (08/30) showed gallbladder wall thickening, cholelithiasis, trace pericho lecystic fluid, 3 mm CBD WBC 5.3 Alk phos normal 125 ml/hr Zosyn SL oxycodone for pain Zofran for nausea Protonix for GI prophylaxis Patient's amylase (439) and lipase (253) were elevated this AM Will hold off on surgery for now, recheck amylase and lipase tomorrow Will start patient on clear liquids today NPO at midnight (2) Pancreatitis Current Visit: Yes Status: Acute Elevated lipase and amylase Will recheck in morning, if significantly decreased, may plan for cholecystectomy Clears now NPO at midnight On zosyn Qualifiers: Chronicity: acute Pancreatitis type: unspecified pancreatitis type Acute pancreatitis complication: no infection or necrosis Qualified Code(s): K85.90 - Acute pancreatitis without necrosis or infection, unspecified Subjective Patient reports: no new complaints, still having pain, flatus, no bowel movement Narrative: Patient still complaining of abdominal pain this morning. He denies nausea, vomiting, BMs, CP, SOB, fevers/chills. He is passing flatus. Objective Vital Signs - Last 8 Hours Temp Pulse Resp BP Pulse Ox 08/31/18 06:24 98.3 F 54 16 129/51 08/31/18 04:07 99 F 51 15 146/75 93 Intake and Output 08/30/18 08/31/18 08/31/18 23:59 07:59 15:59 Intake Total 1000 / 1000 1100 / 1100 Output Total 650 / 650 Balance 1000 / 1000 450 / 450 Intake: IV Fluids 1000 / 1000 1100 / 1100 0.9 % Sodium Chloride 1,000 ML 1000 / 1000 1000 / 1000 @ 125 mls/hr IVC .Q8H JENNA Rx#: [id number] Zosyn 3.375 GM In 0.9 % Sodium 100 / 100 Chloride (Mini-Bag +) 100 ML @ 25 mls/hr IVPB Q8H JENNA Rx#: [id number] Oral 0 / 0 Output: Urine 650 / 650 Other: Meal NPO # Bowel Movements 0 Weight 86.5 kg Blood Glucose* 79 64 Patient Weight 08/31/18 23:59 Weight 86.5 kg - General physical appearance well developed - Respiratory normal expansion, normal respiratory effort - Cardiovascular Cardiovascular exam: Present: RRR - Abdomen Abdomen: Present: bowel sounds present, soft, tender Abdominal Tenderness: epigastic, RUQ - Integumentary no rash - Psychiatric oriented to time, oriented to person, oriented to place - Labs 08/31/18 04:40 08/31/18 04:40 Diabetes panel 08/30/18 08/31/18 Range/Units 15:01 04:40 Sodium 141 (136-145) mEq/L Potassium 3.6 (3.5-5.1) mEq/L Chloride 109 H (98-107) mEq/L Carbon Dioxide 24 (23-29) mEq/L BUN 16 (8-23) mg/dL Creatinine 1.10 (0.70-1.30) mg/dL Glucose 76 (70-105) mg/dL Hemoglobin A1c 5.6 ( - 5.6) % Calcium 8.2 L (8.6-10.3) mg/dL AST 42 H (13-39) Units/L ALT 27 (7-52) Units/L Alkaline Phosphatase 70 (34-104) Units/L Albumin 3.4 L (3.5-5.7) g/dL Calcium panel 08/31/18 Range/Units 04:40 Calcium 8.2 L (8.6-10.3) mg/dL Albumin 3.4 L (3.5-5.7) g/dL Pituitary panel 08/31/18 Range/Units 04:40 Sodium 141 (136-145) mEq/L Potassium 3.6 (3.5-5.1) mEq/L Chloride 109 H (98-107) mEq/L Carbon Dioxide 24 (23-29) mEq/L BUN 16 (8-23) mg/dL Creatinine 1.10 (0.70-1.30) mg/dL Glucose 76 (70-105) mg/dL Calcium 8.2 L (8.6-10.3) mg/dL Adrenal panel 08/31/18 Range/Units 04:40 Sodium 141 (136-145) mEq/L Potassium 3.6 (3.5-5.1) mEq/L Chloride 109 H (98-107) mEq/L Carbon Dioxide 24 (23-29) mEq/L BUN 16 (8-23) mg/dL Creatinine 1.10 (0.70-1.30) mg/dL Glucose 76 (70-105) mg/dL Calcium 8.2 L (8.6-10.3) mg/dL Total Bilirubin 0.9 (0.3-1.0) mg/dL AST 42 H (13-39) Units/L ALT 27 (7-52) Units/L Alkaline Phosphatase 70 (34-104) Units/L Albumin 3.4 L (3.5-5.7) g/dL
[2018-08-31] MEDS: Aspirin 81 MG TAB.CHEW PO SCH (09:26)
[2018-08-31] MEDS: Thiamine (B-1) 100 MG in D5% in Water 50 ML IVPB SCH (09:27)
[2018-08-31] MEDS ORDERED: Pantoprazole 40 MG VIAL IVP SCH (09:45)
[2018-08-31 10:54] LABS: Chol/HDL Ratio 4.4 (0-4.9)
[2018-08-31] MEDS ORDERED: Artificial Tears SOLN 15 ML BOTTLE BOTH EYES ONE (21:18)
[2018-09-01 05:37] LABS: Basophils % 0.4 %; Eosinophils # 0.3 K/mcL (0.0-0.6); Eosinophils % 5.2 %; Hemoglobin 10.1 g/dL (12.9-16.9); Immature Granulocytes % 0.2 % (0-4); Lymphocytes # 0.9 K/mcL (0.6-4.6); Lymphocytes % 18.1 %; Mean Corpuscular HGB Conc 33.7 g/dL (31.6-35.5); Mean Corpuscular Hemoglobin 29.8 pg (28.0-33.3); Mean Corpuscular Volume 88.5 fL (83.0-100.0); Mean Platelet Volume 10.2 fL (9.4-12.4); Monocytes # 0.4 K/mcL (0.0-1.3); Monocytes % 7.9 %; Neutrophils # 3.5 K/mcL (1.6-8.9); Platelet Count 146 K/mcL (140-400); Red Blood Count 3.39 M/mcL (4.19-5.50); Red Cell Distribution Width 13.5 % (11.5-14.5); Segmented Neutrophils % 68.2 %
[2018-09-01 05:58] LABS: Alanine Aminotransferase 28 Units/L (7-52); Albumin 3.5 g/dL (3.5-5.7); Albumin/Globulin Ratio 1.6 (1.1-2.2); Alkaline Phosphatase 68 Units/L (34-104); Amylase 143 Units/L (29-103); Aspartate Amino Transferase 27 Units/L (13-39); BUN/Creatinine Ratio 9 (6-26); Bilirubin,Total 0.7 mg/dL (0.3-1.0); Blood Urea Nitrogen 11 mg/dL (8-23); Calcium 8.1 mg/dL (8.6-10.3); Carbon Dioxide 22 mEq/L (23-29); Chloride 112 mEq/L (98-107); Globulin 2.2 g/dL (2.4-3.5); Glucose 97 mg/dL (70-105); Lipase 80 Units/L (11-82); Osmolality,Calculated 291 (280-300); Potassium 3.4 mEq/L (3.5-5.1); Sodium 141 mEq/L (136-145); Total Protein 5.7 g/dL (6.4-8.9); eGFR For Non-African Americans 57 (> 60)
[2018-09-01] MEDS: Piperacillin/Tazobactam 3.375 GM in 0.9 % Sodium Chloride Mini Bag 100 ML IVPB SCH ×3 (06:15→21:29)
[2018-09-01] MEDS: 0.9 % Sodium Chloride 1,000 ML IVC SCH ×2 (06:16→20:49)
[2018-09-01] MEDS: *HR* Heparin 5,000 UNIT/ML VIAL SQ SCH (07:11)
--- NOTE | 2018-09-01 07:32 | General Surgery Progress Note ---
Date of Encounter: 09/01/18 Time of Encounter: 07:30 - Assessment and Plan (1) Gallstone pancreatitis Current Visit: Yes Status: Acute Noted normalization of Lipase value. No abdominal pain on exam. Will proceed with a laparoscopic cholecystectomy with IOC today. Risks and benefits discussed with the patient and he agrees to the above plan. Subjective Patient reports: other (Patient states pain has resolved. No nausea or vomiting.) Objective Vital Signs - Last 8 Hours Temp Pulse Resp BP Pulse Ox 09/01/18 04:38 98.6 F 56 16 162/73 95 09/01/18 01:10 64 14 161/75 96 09/01/18 00:44 98.6 F 59 16 162/74 98 09/01/18 00:27 98.6 F 59 16 179/72 97 09/01/18 00:05 98.6 F 55 16 183/71 96 Intake and Output 08/31/18 08/31/18 09/01/18 15:59 23:59 07:59 Intake Total 1580 / 1580 1050 / 1050 1050 / 1050 Output Total 0 / 0 300 / 300 Balance 1580 / 1580 1050 / 1050 750 / 750 Intake: IV Fluids 1100 / 1100 1050 / 1050 1050 / 1050 0.9 % Sodium Chloride 1,000 ML 1000 / 1000 950 / 950 950 / 950 @ 125 mls/hr IVC .Q8H JENNA Rx#: [id number] Zosyn 3.375 GM In 0.9 % Sodium 100 / 100 100 / 100 100 / 100 Chloride (Mini-Bag +) 100 ML @ 25 mls/hr IVPB Q8H JENNA Rx#: [id number] Oral 480 / 480 0 / 0 0 / 0 Output: Urine 0 / 0 300 / 300 Other: Meal CLEARS Stool Size Small Stool Consistency loose Stool Color Brown Blood Tinged # Voids 1 1 1 # Bowel Movements 1 1 Blood Glucose* 97 - General physical appearance well nourished, no distress - Abdomen Abdomen: Present: bowel sounds present, soft, non tender - Labs 09/01/18 05:25 09/01/18 05:25 Diabetes panel 08/31/18 09/01/18 Range/Units 09:40 05:25 Sodium 141 (136-145) mEq/L Potassium 3.4 L (3.5-5.1) mEq/L Chloride 112 H (98-107) mEq/L Carbon Dioxide 22 L (23-29) mEq/L BUN 11 (8-23) mg/dL Creatinine 1.20 (0.70-1.30) mg/dL Glucose 97 (70-105) mg/dL Calcium 8.1 L (8.6-10.3) mg/dL AST 27 (13-39) Units/L ALT 28 (7-52) Units/L Alkaline Phosphatase 68 (34-104) Units/L Albumin 3.5 (3.5-5.7) g/dL Triglycerides 166 H (< 150) mg/dL HDL Cholesterol 22 L (40-59) mg/dL Calcium panel 09/01/18 Range/Units 05:25 Calcium 8.1 L (8.6-10.3) mg/dL Albumin 3.5 (3.5-5.7) g/dL Pituitary panel 09/01/18 Range/Units 05:25 Sodium 141 (136-145) mEq/L Potassium 3.4 L (3.5-5.1) mEq/L Chloride 112 H (98-107) mEq/L Carbon Dioxide 22 L (23-29) mEq/L BUN 11 (8-23) mg/dL Creatinine 1.20 (0.70-1.30) mg/dL Glucose 97 (70-105) mg/dL Calcium 8.1 L (8.6-10.3) mg/dL Adrenal panel 09/01/18 Range/Units 05:25 Sodium 141 (136-145) mEq/L Potassium 3.4 L (3.5-5.1) mEq/L Chloride 112 H (98-107) mEq/L Carbon Dioxide 22 L (23-29) mEq/L BUN 11 (8-23) mg/dL Creatinine 1.20 (0.70-1.30) mg/dL Glucose 97 (70-105) mg/dL Calcium 8.1 L (8.6-10.3) mg/dL Total Bilirubin 0.7 (0.3-1.0) mg/dL AST 27 (13-39) Units/L ALT 28 (7-52) Units/L Alkaline Phosphatase 68 (34-104) Units/L Albumin 3.5 (3.5-5.7) g/dL Consult Discharge Plan - Plan Referrals: Torsten Momin MD [Primary Care Provider] -
[2018-09-01 08:22] LABS: INR 1.1; Prothrombin Time 12.7 Seconds (9.4-12.1)
--- NOTE | 2018-09-01 09:54 | Anesthesia Evaluation PreOp ---
Date of Encounter: 09/01/18 Time of Encounter: 09:52 - Past History Planned Operation: Lap cholecystectomy Cardiac History: [place] (2016), HTN, Hyperlipidemia, Cardiac Stent (CAD) Pulmonary History: Former smoker SPANISHER History: Other (parkinson's) Other Medical History: Thyroid (hypo) Anesthesia History: No Prior Anesthetic Complications, Past Anesthesia (CABG, appy, TKR) Alcohol Use: none Drug use: none Medications and Allergies Aspirin 81 mg PO DAILY 08/26/18 [History] Omeprazole [PriLOSEC] 20 mg PO DAILY 08/26/18 [History] Atorvastatin [Lipitor] 40 mg PO HS 08/31/18 [History] Carbidopa/Levodopa ER 50/200 [Sinemet ER 50-200 TAB] 1 each PO BID 08/31/18 [History] Clopidogrel [Plavix] 75 mg PO DAILY 08/31/18 [History] Levothyroxine [Synthroid] 100 mcg PO QAM 08/31/18 [History] Metoprolol [Lopressor] 25 mg PO BID 08/31/18 [History] Multivit-Min/FA/Lycopen/Lutein [A Thru Z Select Multivit Tab] 1 tab PO DAILY 08/31/18 [History] Ramelteon [Rozerem] 8 mg PO HS PRN 08/31/18 [History] Allergy/AdvReac Type Severity Reaction Status Date / Time naproxen Allergy Itching Verified 08/30/18 00:01 NSAIDS (Non-Steroidal Allergy Itching Verified 08/30/18 00:01 Anti-Inflamma - Meds/Allergy Pre-op Review Medications Reviewed: Yes Allergies Reviewed: Yes Beta Blockers on Current Med List: Yes If Beta Blockers taken, Date/Time (Last Dose taken): 09/01/18 950am Anesthesia Results - Labs 09/01/18 05:25 09/01/18 05:25 ECHO 01/2017: Impressions: LVEF 55%. Normal appearing LV size and wall thickness. RV is normal in size and function. Mild mitral regurgitation. Based on images provided, there is trivial to small pericardial fluid present. RV size and function are normal. There is no collapse of the right sided chambers. IVC is not visualized. Blood pressure is normal. Overall, there does not appear to be a significant amount of pericardial fluid and no findings suggesting tamponade. - Imaging EKG: report reviewed (SINUS BRADYCARDIA RIGHT BUNDLE BRANCH BLOCK [120+ ms QRS DURATION, UPRIGHT V1, 40+ ms S IN I/aVL/V4/V5/V6] Electronically Signed On 02-04-2018 15:19:13 EDT by Gosia Miller) Anesthesia Exam Vital Signs/O2 Sat, Most Current Temp Pulse Resp BP Pulse Ox 98.5 F 68 16 176/72 94 09/01/18 07:42 09/01/18 07:42 09/01/18 07:42 09/01/18 07:42 09/01/18 08:31 Weight: 86kg NPO (# of Hours): >8 - HEENT Pupil (Motor): Pupils equal, EOMI Mallampati: III Teeth: Edentulous Oral Opening: Greater than 3 - SPANISHER LOC: Oriented SPANISHER Motor: Normal RUE, Normal LUE, Normal RLE, Normal LLE, Normal Face SPANISHER Sensory: Normal: RUE, LUE, RLE, LLE, Face - Cardiac Rhythm: Regular - Pulmonary Breath Sounds: bilateral Clear Respiratory Effort: Symmetrical Anesthesia Assess/Plan ASA Score: 3 Level of consciousness: Cooperative Anesthetic Plan: General Monitoring Plan: Standard Monitors Recovery Plan: PACU
[2018-09-01] MEDS: Aspirin 81 MG TAB.CHEW PO SCH (09:56)
[2018-09-01] MEDS ORDERED: *HR* Propofol 200 MG/20 ML VIAL IVP ONE (10:58)
[2018-09-01] MEDS ORDERED: *HR* FentaNYL (PF) 100 MCG/2 ML VIAL ONE (10:58)
[2018-09-01] MEDS ORDERED: *HR* Rocuronium Bromide 50 MG/5 ML VIAL ONE (11:03)
[2018-09-01] MEDS ORDERED: Lidocaine -MPF 4% 5 ML AMPUL ONE (11:03)
[2018-09-01] MEDS ORDERED: *HR* Succinylcholine 200 MG/10 ML VIAL IVP ONE (11:03)
[2018-09-01] MEDS ORDERED: Lidocaine -MPF 2% 2 ML VIAL ONE (11:03)
[2018-09-01] MEDS ORDERED: Isovue-300 50 ML VIAL IVP ONE (11:04)
[2018-09-01] MEDS ORDERED: Bupivacaine/EPI 1:200k 0.25%PF 30 ML VIAL ONE (11:04)
[2018-09-01] MEDS ORDERED: Dexamethasone 4 MG/ML VIAL ONE (11:31)
[2018-09-01] MEDS ORDERED: Ondansetron 4 MG/2 ML VIAL ONE (11:31)
--- NOTE | 2018-09-01 12:10 | Operative Note ---
Date of procedure: 09/01/18 Pre-op diagnosis: Gallstone pancreatitis Post-op diagnosis: same Procedure: Laparoscopic cholecystectomy with intraoperative cholangiogram Anesthesia: MAR Surgeon: Armand John Was there an regulatory affairs assistant present: No Master Mechanic Other: ELAINE Wright Estimated blood loss (cc): 8 Specimen: gallbladder and contents Condition: stable Disposition: PACU Procedure in Detail: Date of surgery: 09/01/18 After properly identifying the patient, the patient was brought to the operating room and placed in supine position. After proper IV sedation was achieved followed by general endotracheal intubation, the patient's abdomen was prepped and draped in a normal sterile fashion. A timeout was performed noting the patient's name and type of procedure to be performed. Half percent Marcaine with epinephrine was used to infiltrate the epidermal dermal and subcutaneous tissue just above the umbilicus. An 11 blade scalpel was then used to make an incision in this area down to the rectus fascia which was also incised. Once the abdomen was entered a 12 mm port was placed through the incision and the abdomen was insufflated with carbon dioxide. A laparoscopic camera was placed through the port which showed no injury to the intra-abdominal organs upon entry. A subxiphoid 5 mm port and a right subcostal margin 5 mm port were then placed under direct camera visualization after each of these areas were first infiltrated with half percent Marcaine solution. The patient was placed in reverse Trendelenburg position and the gallbladder was identified and retracted superiorly. There was edema surrounding the gallbladder and the lymphatic tissues near the infundibulum were consistent with gallstone pancreatitis with inflammation. The peritoneal covering overlying the cystic duct and cystic artery was bluntly dissected away with a [place] dissector. Once the cystic duct was isolated and nontraumatic grasper was exchanged for a Lopez grasper and a clip was placed along the distal aspect of the cystic duct near the infundibulum. Laparoscopic scissors were used to make an incision of the cystic duct proximal to the clip and a cholangiogram catheter was placed through the Lopez grasper and advanced through the small opening and secured in place with a laparoscopic clip. Intraoperative cholangiogram was performed which demonstrated filling and flow into the common bile duct and small bowel and retrograde filling of the hepatic duct and hepatic radicles without any evidence of a filling defect. The cholangiogram catheter was then removed and the cystic duct was formally clipped with laparoscopic clips and incised laparoscopic scissors. The cystic artery was likewise isolated, clipped laparoscopic clips, and incised laparoscopic scissors. The gallbladder was dissected away from the gallbladder fossa with Bovie cauterization while Bovie cauterization was used to maintain hemostasis. Once the gallbladder was dissected free it was removed from the abdomen via an Endobag. Reinspection of the right upper quadrant demonstrated maintenance of hemostasis and a right upper quadrant was irrigated with normal saline solution. All ports were removed from the abdomen after the abdomen was desufflated. The rectus fascia for the supraumbilical incision was reapproximated with a figure of eight 0 Vicryl suture. Subcutaneous tissue was reapproximated with 3- 0 Vicryl suture and the epidermal and dermal layers for the remaining incisions were closed with 4-0 Monocryl sutures. Needle, sponge, and instrument counts were correct 2 and the incisions were covered with Steri-Strips and Band-Aids. The patient was aroused from IV sedation, extubated in the operating room without complication, and transported to the recovery room stable condition.
[2018-09-01] MEDS ORDERED: Neostigmine Methylsulfate 3 MG/3 ML SYRINGE ONE (12:14)
[2018-09-01] MEDS ORDERED: *HR* HYDROmorphone (PF) 1 MG/ML SYRINGE IVP PRN (12:15)
[2018-09-01] MEDS ORDERED: Ondansetron 4 MG/2 ML VIAL IVP PRN ×2 (12:15→14:00)
[2018-09-01] MEDS ORDERED: *HR* Labetalol 20 MG/4 ML SYRINGE IVP PRN (12:15)
[2018-09-01] MEDS ORDERED: Ringers Solution, Lactated 1,000 ML ONE (13:20)
--- NOTE | 2018-09-01 13:28 | Anesthesia Evaluation Post Op ---
Date of Encounter: 09/01/18 Time of Encounter: 13:25 - Vital Signs Vital Signs: Vital Signs/O2 Sat, Most Current Temp Pulse Resp BP Pulse Ox 97.4 F L 55 16 188/84 98 09/01/18 13:17 09/01/18 13:17 09/01/18 13:17 09/01/18 13:17 09/01/18 13:17 - Lungs Lungs: Clear Ascult./Percussion - Airway Airway: Non-obstructed - Cardiovascular Regular Rate, Baseline Rhythm - Mental Status Mental Status: Alert & Oriented, Answers Appropriately - Pain Pain Scale: 0 Pain Scale used: Numeric (1 - 10) - Nausea Vomiting Nausea Vomiting: Not Present - Hydration Hydration: Tolerates oral liquids, Ice chips, Has not voided - Discharge PostOp Status: Transfer Patient to floor
[2018-09-01] MEDS ORDERED: OXYCODONE Oral CONC 10 MG/0.5 ML ORAL.SYG SL PRN ×2 (14:00)
[2018-09-01] MEDS ORDERED: Naloxone 0.4 MG/ML INJ IVP PRN (14:00)
--- NOTE | 2018-09-01 14:23 | Internal Med Progress Note ---
Hospitalist Progress Note - Encounter Date of Encounter: 09/01/18 Time of Encounter: 14:21 - Subjective Interval History: Patient with history of GERD, high cholesterol, hypertension, CAD with stent in the past patient admitted with abdominal pain nauseaand vomiting CT of the abdomen showed gallbladder distention and thickening, mri shows cholecystitis also had very high lipase and amylase which is now comming down surgery is following and plan from surgery standpoint to start . Clearly liquid diet with and plan on surgery may be tomorrow follow-up today patient stated he is feeling better less abdominal pain no nausea vomiting 09/01 patient returned from surgery awake doing well operated note noted - Exam Vitals: Temp Pulse Resp BP Pulse Ox 97.9 F 48 16 187/70 98 09/01/18 14:03 09/01/18 14:03 09/01/18 14:03 09/01/18 14:03 09/01/18 14:03 Exam: General: Patient is alert, oriented, no acute distress, Head: atraumatic, normocephalic, Eye: normal appearance, PERRL, no scleral icterus, no conjunctival injection ENT: mucous membranes moist, normal external ear exam Neck: normal inspection, trachea midline, full ROM, no carotid bruits Chest: normal inspection, symmetric chest rise Respiratory: Good respiratory effort. Bilateral breath sounds are clear without wheezing, crackles, or rhonchi. Cardiovascular: Regular rate and rhythm. s1 and s2 No clicks, rubs, gallops, or murmors. Abdomen: Bowel sounds present normoactive x-4 quadrants. Abdomen is soft, +ve laguna sign, no flank discoloration, musculoskeletal: Spontaneously moving all extremities. no edema, no calf tenderness Skin: warm, dry, intact. Ecchymosis of the left hand extending to mid forearm. Neuro: Alert and oriented x4. Sensation light touch intact. Cranial nerves 2- 12 is intact. Not aphasic, gait is steady, rapid hand movements intact, [id number] intact, Psych: Patient's affect is normal - Assessment and Plan (1) CAD (coronary artery disease) Current Visit: Yes Status: Chronic Assessment and Plan: no chest pain (2) Pancreatitis, acute Current Visit: No Status: Acute Assessment and Plan: resolving (3) HTN (hypertension) Current Visit: Yes Status: Chronic Assessment and Plan: bp hgigh will place prn hydralazine (4) HLD (hyperlipidemia) Current Visit: Yes Status: Chronic (5) CKD (chronic kidney disease) stage 3, GFR 30-59 ml/min Current Visit: Yes Status: Chronic Assessment and Plan: resolving (6) Nausea & vomiting Current Visit: Yes Status: Resolved Assessment and Plan: resolved (7) Cholelithiasis Current Visit: Yes Status: Acute Assessment and Plan: s/p cholecystectomy (8) Acute pancreatitis Current Visit: Yes Status: Acute - Time Spent with Patient Total time spent is greater than 50% in coordination of care (as documented) at patient's floor/unit and/or counseling patient: Internal Medicine: Result - Labs CBC & Chem 7: 09/01/18 05:25 09/01/18 05:25 Labs: Short CBC 09/01/18 Range/Units 05:25 WBC 5.2 (4.3-11.1) K/mcL Hgb 10.1 L (12.9-16.9) g/dL Hct 30.0 L (37.5-50.1) % Plt Count 146 (140-400) K/mcL Neutrophils # 3.5 (1.6-8.9) K/mcL BMP 09/01/18 05:25 Sodium 141 Potassium 3.4 L Chloride 112 H Carbon Dioxide 22 L BUN 11 Creatinine 1.20 Glucose 97 Calcium 8.1 L Liver Function 09/01/18 Range/Units 05:25 Total Bilirubin 0.7 (0.3-1.0) mg/dL AST 27 (13-39) Units/L ALT 28 (7-52) Units/L Alkaline Phosphatase 68 (34-104) Units/L Albumin 3.5 (3.5-5.7) g/dL - ABG Interpretation ABG results: PT/INR, D-dimer PT 12.7 Seconds (9.4-12.1) H 09/01/18 07:49 - Impressions Impressions Cholangiogram,Operative 09/01/18 11:56 IMPRESSION: Fluoroscopic imaging provided during intraoperative cholangiogram. Please see operative report for further details. D/ / Raphael Martinez / Raphael Martinez Interpreting Provider: Raphael Martinez Consult Discharge Plan - Plan Referrals: Torsten Momin MD [Primary Care Provider] - (1) CAD (coronary artery disease) Qualifiers: Coronary Disease-Associated Artery/Lesion type: [place] artery [place] vs. transplanted heart: [place] heart Associated angina: without angina Qualified Code(s): I25.10 - Atherosclerotic heart disease of [place] coronary artery without angina pectoris (2) Pancreatitis, acute Qualifiers: Pancreatitis type: biliary Acute pancreatitis complication: no infection or necrosis Qualified Code(s): K85.10 - Biliary acute pancreatitis without necrosis or infection (3) HTN (hypertension) Qualifiers: Hypertension type: essential hypertension Qualified Code(s): I10 - Essential (primary) hypertension (4) HLD (hyperlipidemia) Qualifiers: Hyperlipidemia type: pure hypercholesterolemia Qualified Code(s): E78.00 - Pure hypercholesterolemia, unspecified; E78.0 - Pure hypercholesterolemia (6) Nausea & vomiting Qualifiers: Vomiting type: cyclical vomiting Qualified Code(s): G43.A0 - Cyclical vomiting, not intractable (7) Cholelithiasis Qualifiers: Cholelithiasis location: gallbladder Cholecystitis presence: with cholecystitis Cholecystitis acuity: unspecified acuity Biliary obstruction: without biliary obstruction Qualified Code(s): K80.10 - Calculus 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 (8) Acute pancreatitis Qualifiers: Pancreatitis type: biliary
[2018-09-01] MEDS: Carbidopa/Levodopa ER 50/200 TABLET PO SCH (20:47)
[2018-09-02 04:23] LABS: Hematocrit 31.6 % (37.5-50.1); Hemoglobin 10.3 g/dL (12.9-16.9); Immature Granulocytes % 0.7 % (0-4); Lymphocytes # 0.8 K/mcL (0.6-4.6); Lymphocytes % 10.9 %; Mean Corpuscular HGB Conc 32.6 g/dL (31.6-35.5); Mean Corpuscular Hemoglobin 29.3 pg (28.0-33.3); Mean Platelet Volume 10.7 fL (9.4-12.4); Monocytes # 0.5 K/mcL (0.0-1.3); Monocytes % 6.3 %; Platelet Count 154 K/mcL (140-400); Red Blood Count 3.51 M/mcL (4.19-5.50); Red Cell Distribution Width 13.6 % (11.5-14.5); Segmented Neutrophils % 82.1 %
[2018-09-02 04:28] LABS: Alanine Aminotransferase 3 Units/L (7-52); Albumin 3.5 g/dL (3.5-5.7); Albumin/Globulin Ratio 1.5 (1.1-2.2); Alkaline Phosphatase 61 Units/L (34-104); Aspartate Amino Transferase 24 Units/L (13-39); BUN/Creatinine Ratio 9 (6-26); Bilirubin,Total 0.6 mg/dL (0.3-1.0); Blood Urea Nitrogen 10 mg/dL (8-23); Calcium 8.1 mg/dL (8.6-10.3); Carbon Dioxide 22 mEq/L (23-29); Chloride 110 mEq/L (98-107); Globulin 2.4 g/dL (2.4-3.5); Glucose 136 mg/dL (70-105); Osmolality,Calculated 289 (280-300); Potassium 3.6 mEq/L (3.5-5.1); Sodium 139 mEq/L (136-145); Total Protein 5.9 g/dL (6.4-8.9); eGFR For Non-African Americans > 60 (> 60)
[2018-09-02] MEDS: 0.9 % Sodium Chloride 1,000 ML IVC SCH (05:44)
[2018-09-02] MEDS: Piperacillin/Tazobactam 3.375 GM in 0.9 % Sodium Chloride Mini Bag 100 ML IVPB SCH (05:59)
[2018-09-02] MEDS: Carbidopa/Levodopa ER 50/200 TABLET PO SCH (07:28)
[2018-09-02] MEDS ORDERED: Thiamine (B-1) 100 MG in D5% in Water 50 ML IVPB SCH (09:00)
[2018-09-02] MEDS ORDERED: Pantoprazole 40 MG VIAL IVP SCH (09:00)
[2018-09-02] MEDS ORDERED: Aspirin 81 MG TAB.CHEW PO SCH (09:00)
--- NOTE | 2018-09-02 09:11 | Internal Med Progress Note ---
Hospitalist Progress Note - Encounter Date of Encounter: 09/02/18 Time of Encounter: 09:14 - Subjective Interval History: Patient with history of GERD, high cholesterol, hypertension, CAD with stent in the past patient admitted with abdominal pain nauseaand vomiting CT of the abdomen showed gallbladder distention and thickening, mri shows cholecystitis also had very high lipase and amylase which is now comming down surgery is following and plan from surgery standpoint to start . Clearly liquid diet with and plan on surgery may be tomorrow follow-up today patient stated he is feeling better less abdominal pain no nausea vomiting 09/01 patient returned from surgery awake doing well operated note noted 09/02 patient seen and examined says he is doing very well and desires to go home telemetry reports patient having slow heart rate in the 40s the low 50s he is on Lopressor which I will stop for now blood pressures also high we will use Norvasc instead he is not having symptoms from bradycardia his underlying atrial fibrillation - Exam Vitals: Temp Pulse Resp BP Pulse Ox 97.9 F 46 16 174/69 94 09/02/18 04:36 09/02/18 08:25 09/02/18 08:25 09/02/18 08:25 09/02/18 08:25 Exam: General: Patient is alert, oriented, no acute distress, Head: atraumatic, normocephalic, Eye: normal appearance, PERRL, no scleral icterus, no conjunctival injection ENT: mucous membranes moist, normal external ear exam Neck: normal inspection, trachea midline, full ROM, no carotid bruits Chest: normal inspection, symmetric chest rise Respiratory: Good respiratory effort. Bilateral breath sounds are clear without wheezing, crackles, or rhonchi. Cardiovascular: Regular rate and rhythm. s1 and s2 No clicks, rubs, gallops, or murmors. Abdomen: Bowel sounds present normoactive x-4 quadrants. Abdomen is soft, +ve laguna sign, no flank discoloration, musculoskeletal: Spontaneously moving all extremities. no edema, no calf tenderness Skin: warm, dry, intact. Ecchymosis of the left hand extending to mid forearm. Neuro: Alert and oriented x4. Sensation light touch intact. Cranial nerves 2- 12 is intact. Not aphasic, gait is steady, rapid hand movements intact, [id number] intact, Psych: Patient's affect is normal - Assessment and Plan (1) CAD (coronary artery disease) Current Visit: Yes Status: Chronic Assessment and Plan: No chest pain patient doing well (2) Pancreatitis, acute Current Visit: No Status: Acute Assessment and Plan: Resolving lipase is down to normal (3) HTN (hypertension) Current Visit: Yes Status: Chronic Assessment and Plan: Not well-controlled with add Norvasc 10 mg once a day (4) HLD (hyperlipidemia) Current Visit: Yes Status: Chronic (5) CKD (chronic kidney disease) stage 3, GFR 30-59 ml/min Current Visit: Yes Status: Chronic Assessment and Plan: Resolved (6) Cholelithiasis Current Visit: Yes Status: Acute (7) Acute pancreatitis Current Visit: Yes Status: Acute (8) Bradycardia Current Visit: Yes Status: Acute Assessment and Plan: Patient has underlying atrial fibrillation now with slow heart rate in the 40s and low 50s was stopped and Lopressor for now may need outpatient Holter monitor and cardiology follow-up evaluation - Time Spent with Patient Total time spent is greater than 50% in coordination of care (as documented) at patient's floor/unit and/or counseling patient: Internal Medicine: Result - Labs CBC & Chem 7: 09/02/18 03:37 09/02/18 03:37 Labs: Short CBC 09/02/18 Range/Units 03:37 WBC 7.3 (4.3-11.1) K/mcL Hgb 10.3 L (12.9-16.9) g/dL Hct 31.6 L (37.5-50.1) % Plt Count 154 (140-400) K/mcL Neutrophils # 6.0 (1.6-8.9) K/mcL BMP 09/02/18 03:37 Sodium 139 Potassium 3.6 Chloride 110 H Carbon Dioxide 22 L BUN 10 Creatinine 1.13 Glucose 136 H Calcium 8.1 L Liver Function 09/02/18 Range/Units 03:37 Total Bilirubin 0.6 (0.3-1.0) mg/dL AST 24 (13-39) Units/L ALT 3 L (7-52) Units/L Alkaline Phosphatase 61 (34-104) Units/L Albumin 3.5 (3.5-5.7) g/dL - ABG Interpretation ABG results: PT/INR, D-dimer PT 12.7 Seconds (9.4-12.1) H 09/01/18 07:49 - Impressions Impressions Cholangiogram,Operative 09/01/18 11:56 IMPRESSION: Fluoroscopic imaging provided during intraoperative cholangiogram. Please see operative report for further details. D/ / Raphael Martinez / Raphael Martinez Interpreting Provider: Raphael Martinez Consult Discharge Plan - Plan Referrals: Torsten Momin MD [Primary Care Provider] - (1) CAD (coronary artery disease) Qualifiers: Coronary Disease-Associated Artery/Lesion type: [place] artery [place] vs. transplanted heart: [place] heart Associated angina: without angina Qualified Code(s): I25.10 - Atherosclerotic heart disease of [place] coronary artery without angina pectoris (2) Pancreatitis, acute Qualifiers: Pancreatitis type: biliary Acute pancreatitis complication: no infection or necrosis Qualified Code(s): K85.10 - Biliary acute pancreatitis without necrosis or infection (3) HTN (hypertension) Qualifiers: Hypertension type: essential hypertension Qualified Code(s): I10 - Essential (primary) hypertension (4) HLD (hyperlipidemia) Qualifiers: Hyperlipidemia type: pure hypercholesterolemia Qualified Code(s): E78.00 - Pure hypercholesterolemia, unspecified; E78.0 - Pure hypercholesterolemia (6) Cholelithiasis Qualifiers: Cholelithiasis location: gallbladder Cholecystitis presence: with cholecystitis Cholecystitis acuity: unspecified acuity Biliary obstruction: without biliary obstruction Qualified Code(s): K80.10 - Calculus 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 (7) Acute pancreatitis Qualifiers: Pancreatitis type: biliary
--- NOTE | 2018-09-02 09:25 | General Surgery Progress Note ---
Date of Encounter: 09/02/18 Time of Encounter: 07:45 - Assessment and Plan (1) Cholelithiasis Current Visit: Yes Status: Acute Postoperative day one uncomplicated laparoscopic cholecystectomy. Okay to discharge from a surgical perspective. Surgery will sign off at this time. Thank you for allowing us to participate in [facility]. Qualifiers: Cholelithiasis location: gallbladder Cholecystitis presence: with cholecystitis Cholecystitis acuity: unspecified acuity Biliary obstruction: without biliary obstruction Qualified Code(s): K80.10 - Calculus 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 (2) Pancreatitis Current Visit: Yes Status: Acute Qualifiers: Chronicity: acute Pancreatitis type: unspecified pancreatitis type Acute pancreatitis complication: no infection or necrosis Qualified Code(s): K85.90 - Acute pancreatitis without necrosis or infection, unspecified (3) Nausea & vomiting Current Visit: Yes Status: Resolved Qualifiers: Vomiting type: cyclical vomiting Qualified Code(s): G43.A0 - Cyclical vomiting, not intractable Subjective Patient reports: no new complaints, feels better, tolerating liquids well, voiding w/o difficulty, no flatus, no bowel movement, afebrile Objective Vital Signs - Last 8 Hours Temp Pulse Resp BP Pulse Ox 09/02/18 08:25 46 16 174/69 94 09/02/18 04:36 97.9 F 57 16 163/68 94 Intake and Output 09/01/18 09/02/18 09/02/18 23:59 07:59 15:59 Intake Total 340 / 340 100 / 100 360 / 360 Output Total 375 / 375 500 / 500 Balance -35 / -35 -400 / -400 360 / 360 Intake: IV Fluids 100 / 100 100 / 100 Zosyn 3.375 GM In 0.9 % Sodium 100 / 100 100 / 100 Chloride (Mini-Bag +) 100 ML @ 25 mls/hr IVPB Q8H [facility] Rx#: [id number] Oral 240 / 240 0 / 0 360 / 360 Output: Urine 375 / 375 500 / 500 Other: Meal Lunch Breakfast Percent of Meal Consumed 50% 100% Stool Size Small Stool Consistency loose Stool Color Brown # Bowel Movements 0 Weight 89.1 kg Patient Weight 09/02/18 23:59 Weight 89.1 kg - General physical appearance no distress - Eyes normal ocular movement - ENT atraumatic, normocephalic - Neck Neck exam: trachea midline - Respiratory other (decreased breath sounds) - Cardiovascular Cardiovascular exam: Present: distant heart sounds - Abdomen Abdomen: Present: bowel sounds present, soft, tender - Incision Incision: Present: clean and dry, intact - Psychiatric oriented to time, oriented to person, oriented to place, memory intact - Labs 09/02/18 03:37 09/02/18 03:37 Diabetes panel 09/02/18 Range/Units 03:37 Sodium 139 (136-145) mEq/L Potassium 3.6 (3.5-5.1) mEq/L Chloride 110 H (98-107) mEq/L Carbon Dioxide 22 L (23-29) mEq/L BUN 10 (8-23) mg/dL Creatinine 1.13 (0.70-1.30) mg/dL Glucose 136 H (70-105) mg/dL Calcium 8.1 L (8.6-10.3) mg/dL AST 24 (13-39) Units/L ALT 3 L (7-52) Units/L Alkaline Phosphatase 61 (34-104) Units/L Albumin 3.5 (3.5-5.7) g/dL Calcium panel 09/02/18 Range/Units 03:37 Calcium 8.1 L (8.6-10.3) mg/dL Albumin 3.5 (3.5-5.7) g/dL Pituitary panel 09/02/18 Range/Units 03:37 Sodium 139 (136-145) mEq/L Potassium 3.6 (3.5-5.1) mEq/L Chloride 110 H (98-107) mEq/L Carbon Dioxide 22 L (23-29) mEq/L BUN 10 (8-23) mg/dL Creatinine 1.13 (0.70-1.30) mg/dL Glucose 136 H (70-105) mg/dL Calcium 8.1 L (8.6-10.3) mg/dL Adrenal panel 09/02/18 Range/Units 03:37 Sodium 139 (136-145) mEq/L Potassium 3.6 (3.5-5.1) mEq/L Chloride 110 H (98-107) mEq/L Carbon Dioxide 22 L (23-29) mEq/L BUN 10 (8-23) mg/dL Creatinine 1.13 (0.70-1.30) mg/dL Glucose 136 H (70-105) mg/dL Calcium 8.1 L (8.6-10.3) mg/dL Total Bilirubin 0.6 (0.3-1.0) mg/dL AST 24 (13-39) Units/L ALT 3 L (7-52) Units/L Alkaline Phosphatase 61 (34-104) Units/L Albumin 3.5 (3.5-5.7) g/dL Consult Discharge Plan - Plan Additional Instructions: General Surgical Discharge Instructions 1. No pushing, pulling, or lifting greater than 15 lbs for 2-4 weeks (depending upon procedure). 2. You may shower beginning today, but no tub baths, soaking, or swimming for 2 weeks. 3. You may resume driving when you are off narcotics and are safe to react in a car. 4. Take the as needed Percocet, you may take one additional Tylenol/acetaminophen with the Percocet if needed. Take narcotics as directed. Do not take more narcotics then directed and do not share your narcotics with any other person. Do not drink alcohol while on narcotics. 5. Take stool softeners (Colace) or a water based laxative (Miralax) while taking narcotics. You may hold for loose stools. 6. Report any fevers greater than 100.5F, increase abdominal discomfort, drainage that looks like pus, increased redness or pain at the surgical site, or any vomiting. 7. Report any pain in the calves, shortness of breath, or rapid heartbeat. 8. Follow-up in the office as directed. 9. If you were prescribed antibiotics, do not stop them without talking to your provider. Referrals: Torsten Momin MD [Primary Care Provider] - Prescriptions: amLODIPine [Norvasc] 10 mg PO DAILY 30 Days tablet
[2018-09-02 10:38] VITALS: BP 157/70
--- NOTE | 2018-09-02 13:12 | Discharge Summary ---
Orders not resulted at time of discharge: Pending orders 08/30/18 07:41 Culture,Blood [BC] Stat Date of Encounter: 09/02/18 Time of Encounter: 13:10 - Discharge Diagnosis (1) CAD (coronary artery disease) Priority: Secondary Status: Chronic Qualifiers: Coronary Disease-Associated Artery/Lesion type: [place] artery [place] vs. transplanted heart: [place] heart Associated angina: without angina Qualified Code(s): I25.10 - Atherosclerotic heart disease of [place] coronary artery without angina pectoris (2) Pancreatitis, acute Priority: Secondary Status: Acute Qualifiers: Pancreatitis type: biliary Acute pancreatitis complication: no infection or necrosis Qualified Code(s): K85.10 - Biliary acute pancreatitis without necrosis or infection (3) HTN (hypertension) Priority: Secondary Status: Chronic Qualifiers: Hypertension type: essential hypertension Qualified Code(s): I10 - Essential (primary) hypertension (4) HLD (hyperlipidemia) Priority: Secondary Status: Chronic Qualifiers: Hyperlipidemia type: pure hypercholesterolemia Qualified Code(s): E78.00 - Pure hypercholesterolemia, unspecified; E78.0 - Pure hypercholesterolemia (5) CKD (chronic kidney disease) stage 3, GFR 30-59 ml/min Priority: Secondary Status: Chronic (6) Cholelithiasis Priority: Primary Status: Acute Qualifiers: Cholelithiasis location: gallbladder Cholecystitis presence: with cholecystitis Cholecystitis acuity: unspecified acuity Biliary obstruction: without biliary obstruction Qualified Code(s): K80.10 - Calculus 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 Small is a 88 year old male Patient with history of GERD, high cholesterol, hypertension, CAD, obesity, p atient admitted with abdominal pain nausea vomiting found to have cholecystitis patient was seen by surgery and underwent cholecystectomy and patient did very well postop from surgery signed off stable condition from surgical standpoint patient had a bradycardia therefore discontinue Lopressor and added Norvasc for better blood pressure control is stable to be discharged will follow up with her primary physician's an outpatient may need outpatient Holter monitor and follow-up with cardiology as well. - Time Spent with Patient Total time spent providing and/or coordinating discharge services: Greater than 30 minutes - Discharge Medications Prescriptions: amLODIPine [Norvasc] 10 mg PO DAILY 30 Days tablet Home Medications: Aspirin 81 mg PO DAILY 08/26/18 [History] Omeprazole [PriLOSEC] 20 mg PO DAILY 08/26/18 [History] Atorvastatin [Lipitor] 40 mg PO HS 08/31/18 [History] Carbidopa/Levodopa ER 50/200 [Sinemet ER 50-200 Tab] 1 each PO BID 08/31/18 [History] Clopidogrel [Plavix] 75 mg PO DAILY 08/31/18 [History] Levothyroxine [Synthroid] 100 mcg PO QAM 08/31/18 [History] Multivit-Min/FA/Lycopen/Lutein [A Thru Z Select Multivit Tab] 1 tab PO DAILY 08/31/18 [History] Ramelteon [Rozerem] 8 mg PO HS PRN 08/31/18 [History] amLODIPine [Norvasc] 10 mg PO DAILY 30 Days tablet 09/02/18 [Rx] Allergies/Adverse Reactions: Allergy/AdvReac Type Severity Reaction Status Date / Time naproxen Allergy Itching Verified 08/30/18 00:01 NSAIDS (Non-Steroidal Allergy Itching Verified 08/30/18 00:01 Anti-Inflamma Date of admission: 08/30/18 14:17 Primary care physician: Torsten Momin MD Consults: 08/30/18 06:20 Consult to Surgery [CONS] Routine Consulting Provider: Armand John Reason for Consult: Patient started having abdominal pain on Wednesday w/nausea and vomiting. Worse last night. Pt. states this has not happened before. States he does not drink alcohol at all. Gallbladder US ordered. Dr. John consulted by [facility]. Call Completed: Yes 08/30/18 06:29 Consult to Ambulatory Care Nurse [CONS] Routine Reason for SW Consult: Please assess patient for possible home needs for post-discharge planning. Discharging clinician: Brittni Castro Anticipated date of discharge: 09/02/18 - Constitutional Vitals: Temp Pulse Resp BP Pulse Ox 98.0 F 41 16 157/70 98 09/02/18 10:20 09/02/18 10:20 09/02/18 10:20 09/02/18 10:20 09/02/18 10:20 General appearance: Present: cooperative, mild distress (Abdominal pain), A&O X 3, pleasant, obese, answers questions appropriately Exam: General: Patient is alert, oriented, no acute distress, Head: atraumatic, normocephalic, Eye: normal appearance, PERRL, no scleral icterus, no conjunctival injection ENT: mucous membranes moist, normal external ear exam Neck: normal inspection, trachea midline, full ROM, no carotid bruits Chest: normal inspection, symmetric chest rise Respiratory: Good respiratory effort. Bilateral breath sounds are clear without wheezing, crackles, or rhonchi. Cardiovascular: Regular rate and rhythm. s1 and s2 No clicks, rubs, gallops, or murmors. Abdomen: Bowel sounds present normoactive x-4 quadrants. Abdomen is soft, +ve laguna sign, no flank discoloration, musculoskeletal: Spontaneously moving all extremities. no edema, no calf tenderness Skin: warm, dry, intact. Ecchymosis of the left hand extending to mid forearm. Neuro: Alert and oriented x4. Sensation light touch intact. Cranial nerves 2- 12 is intact. Not aphasic, gait is steady, rapid hand movements intact, [id number] intact, Psych: Patient's affect is normal - Patient Status Disposition: Home, Self-Care Condition: Good Functional capacity at discharge: independent ambulation Overall status at discharge: patient is progressing back to baseline - Discharge Instructions Follow Up With: Torsten Momin MD [Primary Care Provider] - Additional Instructions: General Surgical Discharge Instructions 1. No pushing, pulling, or lifting greater than 15 lbs for 2-4 weeks (depending upon procedure). 2. You may shower beginning today, but no tub baths, soaking, or swimming for 2 weeks. 3. You may resume driving when you are off narcotics and are safe to react in a car. 4. Take the as needed Percocet, you may take one additional Tylenol/acetaminophen with the Percocet if needed. Take narcotics as directed. Do not take more narcotics then directed and do not share your narcotics with any other person. Do not drink alcohol while on narcotics. 5. Take stool softeners (Colace) or a water based laxative (Miralax) while taking narcotics. You may hold for loose stools. 6. Report any fevers greater than 100.5F, increase abdominal discomfort, drainage that looks like pus, increased redness or pain at the surgical site, or any vomiting. 7. Report any pain in the calves, shortness of breath, or rapid heartbeat. 8. Follow-up in the office as directed. 9. If you were prescribed antibiotics, do not stop them without talking to your provider. - Diet and Activity Activity: other Diet: advance to your usual diet
[2018-09-02] MEDS ORDERED: *HR* Heparin 5,000 UNIT/ML VIAL SQ SCH (22:00)
[2018-09-03] MEDS ORDERED: amLODIPine 5 MG TABLET PO SCH (09:00)
== END 2018-09-02 14:51 | disposition home or self-care (01) | DRG 417 ==
LOC: 3BNU → SUATTDRO 14:17 → 3ANU 23:01
PROVIDERS: ADMIT Internal Medicine; ATTEND Internal Medicine